=== PATIENT | male | born 1955 | race African-American/Black ===

== ENCOUNTER 2021-11-18 08:10 | Inpatient (IN) | payer OTHER, SELFPAY ==
[2021-11-18] VITALS (33 sets, daily range): BP systolic 49–130; BP diastolic 21–98; PULSE 69–109; RESP 10–34; TEMP 36.3–37.3; O2SAT 85–98
--- NOTE | ~2021-11-18 | XR_ITS ---
EXAMINATION: XR abdomen NG/feed tube insert INDICATION: Nasogastric tube placement TECHNIQUE: Portable AP KUB-NG at 1303 hours COMPARISON: None available FINDINGS: The nasogastric tube ends with its tip in the right lower lobe. The abdomen is relatively g asless, consistent with bowel obstruction seen on CT. There is mild atelectasis of the left lower lob e. IMPRESSION: 1. Nasogastric tube in the right lower lobe. Tube has been removed at the time of interpretation. Reviewed, dictated and finalized at location A.
--- NOTE | ~2021-11-18 | XR_ITS ---
EXAMINATION: XR chest 1V portable DATE: 11/20/2021 08:15 INDICATION: Septic shock. TECHNIQUE: A single frontal view of the chest was obtained. COMPARISON: Chest single view 11/18/2021, CT abdomen and pelvis 11/18/2021 FINDINGS: The patient is rotated to his left. There are airspace opacities in right midlung zone. No pleural effusion or pneumothorax. The heart size is normal. Main pulmonary artery is enlarged, consis tent with pulmonary arterial hypertension. A right internal jugular central venous catheter is seen w ith tip in the superior vena cava. The nasogastric tube tip is in the stomach. IMPRESSION: 1. Worsened airspace opacities in right midlung zone, consistent with atelectasis versus pneumonia. Reviewed, dictated and finalized at location A. IMPRESSION: 1. Worsened airspace opacities in right midlung zone, consistent with atelectas is versus pneumonia.
--- NOTE | ~2021-11-18 | XR_ITS ---
EXAMINATION: XR chest 1V portable INDICATION: Central line insertion TECHNIQUE: Portable AP chest at 1148 hours COMPARISON: None FINDINGS: The right sided catheter is been inserted which ends with its tip in the midsuperior vena c thai. There are minimal airspace opacities of the right lung and in the left lung base. No pleural eff usion or pneumothorax. The heart size is normal. Osteoarthritis is noted in the shoulders. IMPRESSION: 1. Right-sided catheter ending with its tip in the midsuperior vena cava. 2. Patchy bilateral airspace opacities, consistent with atelectasis versus pneumonia. Reviewed, dictated and finalized at location A. IMPRESSION: 1. Right-sided catheter ending with its tip in the midsuperior vena cava. 2. Patchy bilateral airspace opacities, consistent with atelectasis versus pneu monia.
--- NOTE | ~2021-11-18 | XR_ITS ---
XR abdomen obstructive series INDICATION: Evaluate NG tube position. TECHNIQUE: Limited KUB perform for evaluating NG tube . COMPARISON: 11/18/2021 FINDINGS: NG tube tip in the stomach. There are dilated small bowel loops which may represent ileus o r obstruction.. IMPRESSION: 1: NG tube tip in the stomach, side port near the expected location of the GE junction. 2: Dilated small bowel, adynamic ileus versus obstruction. Reviewed, dictated and finalized at location B.
--- NOTE | ~2021-11-18 | XR_ITS ---
EXAMINATION: XR abdomen NG/feed tube insert DATE: 11/18/2021 16:08 INDICATION: Nasogastric tube placement. TECHNIQUE: A semierect view of the abdomen was obtained. COMPARISON: CT abdomen and pelvis 11/18/2021 FINDINGS: The lower abdomen is excluded. The nasogastric tube tip is in the stomach. There are no dil ated loops of small bowel. IMPRESSION: 1. Nasogastric tube tip in the stomach. 2. Dilated small bowel, consistent with small bowel obstruction. Reviewed, dictated and finalized at location A.
--- NOTE | ~2021-11-18 | CT_ITS ---
EXAMINATION: CT abdomen pelvis wo con DATE: 11/18/2021 10:21 INDICATION: Abdominal pain TECHNIQUE: Computed tomography (CT) of the abdomen and pelvis was performed without intravenous contr ast. The dose-length product was 504.00 mGy-cm. Automated exposure control and iterative reconstructi on technique were employed. COMPARISON: None. FINDINGS: There is dependent atelectasis. Small pericardial effusion.. Heart size normal. No signific ant pleural effusion. Severe gastric distention. There are multiple dilated loops of small bowel with air-fluid levels. The distal small bowel is relatively decompressed. Findings compatible with small bowel obstruction. There are multiple areas of free intraperitoneal air in the nondependent aspect of the abdomen and pelvis, suspicious for perforation. Gallbladder is severely distended. The liver, spleen, pancreas, adrenal glands and kidneys are unrema rkable. Moderate atherosclerosis. Michael catheter present in the bladder. There is osteoarthritis of t he hips. Moderate lumbar spondylosis. Ventral abdominal wall hernias are identified containing fat. IMPRESSION: 1. Small bowel obstruction with free intraperitoneal air, suspicious for bowel perforation. 2: Distended gallbladder, nonspecific. 3: Ventral abdominal wall hernias containing fat. Dr. Donny Latham discussed with Dr. Natan Yen MD at 11/18/2021 10:29 CDT. Reviewed, dictated and finalized at location B.
--- NOTE | ~2021-11-18 | US_ITS ---
EXAMINATION: US renal BI DATE: 11/18/2021 16:39 INDICATION: Acute kidney injury. TECHNIQUE: Multiple ultrasound grayscale images of the kidneys were obtained. COMPARISON: CT abdomen and pelvis 11/18/2021 FINDINGS: The right kidney measures 9.0 x 4.0 x 5.9 cm. The left kidney measures 9.1 x 5.0 x 5.7 cm. The kidney s demonstrate normal parenchymal echogenicity. There is no hydronephrosis. The bladder is decompresse d by a Michael catheter.. IMPRESSION: 1. Normal kidneys. No hydronephrosis. Reviewed, dictated and finalized at location A.
--- NOTE | ~2021-11-18 | XR_ITS ---
EXAMINATION: XR abdomen obstructive series DATE: 11/20/2021 08:15 INDICATION: Small bowel obstruction. TECHNIQUE: Upright and supine views of the abdomen on 3 radiographs were obtained. COMPARISON: CT abdomen and pelvis 11/18/2021 FINDINGS: There are persistently dilated loops of small bowel. The colon is decompressed. The nasogas tric tube tip is in the stomach. No free intraperitoneal gas. A Michael catheter is noted. IMPRESSION: 1. Persistently dilated small bowel, consistent with small bowel obstruction. Reviewed, dictated and finalized at location A.
--- NOTE | 2021-11-18 08:12 | ED.ABDPAIN ---
HPI - Abdominal Pain General Chief Complaint: Abdominal Pain Stated Complaint: ABD PAIN X 3 DAYS History of Present Illness HPI narrative: 66-year-old male presenting to the emergency department for evaluation of lower abdominal pain. [facility] and is reportedly only alert and oriented x1 at baseline. Patient has not had a bowel movement the last few days. Patient has been complaining of lower abdominal pain. Patient does have an old surgical incision on his abdomen but is not sure what that was from. Patient is unable to give any other history at this time. Related Data Home Medications Medication Instructions Recorded Confirmed acetaminophen 500 mg capsule 1,000 mg PO BID 11/18/21 11/18/21 baclofen 10 mg tablet 10 mg PO TID 11/18/21 11/18/21 docusate sodium 100 mg capsule 100 mg PO BID PRN Constipation 11/18/21 11/18/21 dorzolamide 22.3 mg-timolol 6.8 1 drp LEFT EYE BID 11/18/21 11/18/21 mg/mL eye drops ergocalciferol (vitamin D2) 1,250 1,250 mcg PO WEEKLY 11/18/21 11/18/21 mcg (50,000 unit) capsule ibuprofen 400 mg tablet 400 mg PO BID 11/18/21 11/18/21 losartan 25 mg tablet 25 mg PO DAILY 11/18/21 11/18/21 prednisolone acetate 1 % eye 1 drp LEFT EYE BID 11/18/21 11/18/21 drops,suspension psyllium 1 tsp PO BID PRN Constipation 11/18/21 11/18/21 vitamin B complex (B See Rx Instructions .Route .COMPLEX 11/18/21 11/18/21 Complex-Vitamin B12 tablet) Allergies Allergy/AdvReac Type Severity Reaction Status Date / Time No Known Allergies Allergy Verified 11/18/21 14:27 Review of Systems Review of Systems: See HPI ROS unobtainable: Yes unobtainable due to mental status PMFSH Past Medical History Medical History Chronic back pain COPD (chronic obstructive pulmonary disease) DJD (degenerative joint disease) HTN (hypertension), benign Low vision Vitamin D deficiency Family History Family History Other Family history unknown Social History Social History Social History: Anat is from [facility]. Smoking status: Unknown if ever smoked Substance use: unknown Spiritual care concerns: No Exam Narrative: APPEARANCE: Well appearing, no pain, no distress, well-nourished. HEAD: normocephalic, atraumatic. EYES: PERRLA/EOMI, conjunctivae clear. NOSE: Normal no drainage EARS:TMS clear with good light reflex. THROAT: Pharynx clear, no exudate. NECK: Supple. No adenopathy, no masses. RESPIRATORY: Airway patent, respirations nonlabored. Clear to auscultation bilaterally, no rales, rhonchi, wheezing. CARDIOVASCULAR: Regular rate and rhythm without murmurs rubs or gallops. ABDOMINAL: Soft, lower abdominal tenderness to palpation. Old surgical incision MUSCULOSKELETAL: Moves all extremities. Strength/ROM intact, No edema, No calf tenderness. NEURO: Alert. Cranial nerves II through XII intact. Grossly intact SKIN: Warm, dry. Normal Color Procedures Central Line Placement Right IJ: Central Line Date: 11/18/21 Central Line Time: 11:34 Discussed w/ the patient/family/POA,the placement of a central venous catheter, including its clinical necessity/indication & associated potential risks, benifits and alternatives.: Yes The patient/family/POA understand(s) and acknowledge(s) the need to proceed with central venous catheter insertion as an important element of the patient's clinical management.: Yes Performed Emergently - Given emergent patient condition, temporal constraints may have precluded informed consent.: Yes Time Out Performed: Yes Patient Placed on Monitor/Pulse Ox: Yes Max. Sterile Barrier Technique: Caps, large sterile sheet and hand hygiene Central Line Prep: 2% chlorhexidine scrub and sterile drapes applied Technique
[2021-11-18 08:35] LABS: Hemoglobin 14.3 g/dL (14.0-18.0); Mean Corpuscular HGB Conc 33.3 g/dl (32-36); Mean Corpuscular Hemoglobin 32.4 pg (26-34); Mean Corpuscular Volume 97.5 fl (80-100); Platelet Count Result 260 k/mm3 (150-375); Red Blood Count 4.41 M/mm3 (4.6-6.20); Red Cell Distribution Width 13.2 % (11.5-14.5); White Blood Count 15.5 K/mm3 (4.5-10.0)
--- NOTE | 2021-11-18 08:43 | PC.NURSE ---
ns bolus held d/t bs being low. erp dylan rosales.
[2021-11-18 08:51] LABS: Albumin Level 4.2 g/dL (3.5-5.1); Alkaline Phosphatase 67 U/L (38-126); Anion Gap 36 mmol/L (8-16); Bilirubin,Total 0.9 mg/dL (0.2-1.3); Calcium 5.9 mg/dL (8.4-10.2); Carbon Dioxide 17 mmol/L (22-30); Chloride 77 mmol/L (98-107); Glucose 314 mg/dL (65-110); Lipase 101 U/L (23-300); Potassium 6.6 mmol/L (3.4-5.0); Sodium 130 mmol/L (137-145)
[2021-11-18] MEDS: DEXTROSE 10% 500 ML 50 ML (08:51)
[2021-11-18 08:53] LABS: Glucose Point of Care 39 mg/dl (65-105)
[2021-11-18 08:53] LABS: Glucose Point of Care 61 mg/dl (65-105)
[2021-11-18 08:54] LABS: Lactic Acid Reflex 9.4 mmol/L (0.7-2.0)
[2021-11-18 08:58] LABS: Alanine Aminotransferase 690 U/L (6-50)
[2021-11-18 09:00] LABS: Band Neutrophils Percent 37 % (0-6); Large Platelets Present; Lymphocytes Absolute Manual 0.93 K/mm3 (1.1-4.5); Metamyelocytes Percent 1 %; Monocytes Absolute Manual 0.77 K/mm3 (0.1-0.90); Monocytes Percent Manual 5 % (3-9); Neutrophils Absolute Manual 13.64 K/mm3 (1.3-6.7); Neutrophils Percent Manual 51 % (46-73); Platelet Estimate Adequate (Adequate); Total Cells Counted 100
[2021-11-18 09:04] LABS: Estimated CRCL calculation 5 ml/min; Estimated Glomerular Filt Rate 4
[2021-11-18 09:16] LABS: Aspartate Amino Transferase 1050 U/L (17-59); Blood Urea Nitrogen 126 mg/dL (9-20)
[2021-11-18] MEDS: CALCIUM GLUCONATE 1,000 MG/10 ML VIAL 1000 MG IV PUSH (09:22)
[2021-11-18] MEDS: SODIUM BICARBONATE 8.4% 50 MEQ/50 ML SYRINGE IV PUSH (09:22)
[2021-11-18 09:23] LABS: Glucose Point of Care 40 mg/dl (65-105)
[2021-11-18] MEDS: SODIUM CHLORIDE 0.9% IV 1,000 ML 999 ML IV CONT ×2 (09:23)
[2021-11-18] MEDS: DEXTROSE 50% 25 GM/50 ML SYRINGE 50 GM (09:29)
[2021-11-18] MEDS: DEXTROSE 50% 25 GM/50 ML SYRINGE (09:29)
[2021-11-18 09:36] LABS: Glucose 634 mg/dL (65-110)
[2021-11-18 09:53] LABS: Glucose Point of Care 159 mg/dl (65-105)
[2021-11-18 10:05] LABS: Beta-Hydroxybutyrate/Acetoacetate 0.68 mmol/L (0.02-0.27)
[2021-11-18 10:37] LABS: Hemoglobin A1C 5.3 % (<5.7)
[2021-11-18] MEDS: SODIUM ZIRCONIUM CYCLOSILICATE 10 GM POWD.PACK PO (10:45)
[2021-11-18 10:53] LABS: Glucose 254 mg/dL (65-110)
--- NOTE | 2021-11-18 11:00 | PC.NURSE ---
pt. bladder scanned only has 100 ml in. pt. catheterized and no urine output.
[2021-11-18 11:18] LABS: Magnesium 2.2 mg/dL (1.6-2.3)
[2021-11-18 11:19] LABS: Phosphorus 17.2 mg/dL (2.5-4.5)
[2021-11-18 11:32] LABS: Reflex Lactic Acid Yes or No Add Lactic
--- NOTE | 2021-11-18 12:00 | PM.CNGS ---
Assessment and Plan Assessment and plan (1) SBO (small bowel obstruction): Code(s): K56.609 - Unspecified intestinal obstruction, unspecified as to partial versus complete obstruction Status: Acute Assessment and Plan: given comorbid conditions he is a poor surgical candidate, will begin conservative mgmt c NG decompression, bowel rest, IV resus (2) Bowel perforation: Code(s): K63.1 - Perforation of intestine (nontraumatic) Status: Acute Assessment and Plan: small amount of free air, no free fluid/abscess, exam largely benign, will follow closely c serial exams, needs resus (3) DKA (diabetic ketoacidosis): Code(s): E11.10 - Type 2 diabetes mellitus with ketoacidosis without coma Status: Acute Assessment and Plan: mgmt per [employer] technical lead senior developer (4) ORQUIDEA (acute kidney injury): Code(s): N17.9 - Acute kidney failure, unspecified Status: Acute Assessment and Plan: mgmt per [employer] technical lead senior developer, will likely need emergent HD History of Present Illness Consult details Consult date: 11/18/21 Reason for consult: abdominal pain Requesting physician: Gordon Yen DO Narrative: Pt is a 66 y/o M c multiple med issues including severe dementia presenting to ED c/o lower abd pain over last few days. Pt is a poor historian and most history is obtained via chart. Pt resides at [facility] and according to chart has not had a BM over last few days. Pt also c poor appetite. Pt c some nausea, no reports emesis. Review of Systems Review of Systems: ROS unobtainable: Yes unobtainable due to mental status PMFSH Comments unable to obtain Meds Home Medications and Allergies Allergies Allergy/AdvReac Type Severity Reaction Status Date / Time No Known Allergies Allergy Verified 11/18/21 09:27 Vital Signs Vital Signs - 24 hr 11/18/21 08:31 Temperature 36.3 C L Pulse Rate 76 Respiratory Rate 17 Blood Pressure 101/79 Pulse Oximetry 96 Oxygen Delivery Room Air Exam Const: General: comfortable, alert, confusion, ill appearing and tired appearing HENMT: Head: normal to inspection, normocephalic and atraumatic Eyes: General: appearance normal, both eyes and all related structures Neck: Neck: normal visual inspection and full ROM Chest: Chest palpation & inspection: normal inspection of the chest Resp: Effort & Inspection: normal respiratory effort Auscultation: diminished lung sounds Cardio: Rate: regular rate Rhythm: regular rhythm GI: Inspection: distended and incision GI Palp: Yes abdominal tenderness, Yes Soft to palpation, Yes Tenderness to palpation present (GI), No Guarding due to palpation present (GI) and No Rigid due to palpation Other: moderate TTP diffusely, upper midline scar, no peritoneal signs, distended Skin: General skin exam: normal color and no rashes or lesions noted Neuro: General: oriented to person Extrem: General: normal to inspection and full ROM Results Labs Result diagrams: 11/18/21 08:29 11/18/21 10:31 Labs: Abnormal lab results 11/18/21 11/18/21 11/18/21 Range/Units 08:21 08:29 08:29 WBC 15.5 H (4.5-10.0) K/mm3 RBC 4.41 L (4.6-6.20) M/mm3 MPV 12.0 H (7.4-10.4) fl Band Neutrophils % 37 H (0-6) % Lymphocytes % (Manual) 6.0 L (18-44) % Abs Neuts (Manual) 13.64 H (1.3-6.7) K/mm3 Abs Lymphs (Manual) 0.93 L (1.1-4.5) K/mm3 Sodium 130 L (137-145) mmol/L Potassium 6.6 H* (3.4-5.0) mmol/L Chloride 77 L (98-107) mmol/L Carbon Dioxide 17 L (22-30) mmol/L Anion Gap 36 H (8-16) mmol/L BUN 126 H (9-20) mg/dL Creatinine 11.70 H (0.7-1.3) mg/dL Estimated GFR 4 L (59 - ) Glucose 314 H (65-110) mg/dL POC Capillary Glucose 61 L (65-105) mg/dl Lactic Acid (0.7-2.0) mmol/L Calcium 5.9 L (8.4-10.2) mg/dL Phosphorus (2.5-4.5) mg/dL AST 1050 H (17-59) U/L ALT 690 H (6-50) U/L Beta-Hydroxybutyrate/Alo
[2021-11-18 12:02] LABS: Glucose 203 mg/dL (65-110)
[2021-11-18 12:07] LABS: Lactic Acid 4.6 mmol/L (0.7-2.0)
--- NOTE | 2021-11-18 12:24 | PC.NURSE ---
updated nursing staff at [facility] of pt. status spoke w/ Maura
--- NOTE | 2021-11-18 13:45 | PC.NURSE ---
three RN attempted for pt. NG tube x3 unsuccessful.
[2021-11-18] MEDS: NOREPINEPHRINE 8 MG/D5W 250 ML 8 MG/250 ML BAG 9.38 MG IV CONT (14:02)
--- NOTE | 2021-11-18 14:15 | ADMGEN ---
This patient, Fabio Wong, was admitted to Intensive Care Unit-4. Patient/family oriented to hospital policies and general routines including ID bracelet, bed and alarms, visiting hours, pain management, procedures, bathroom and other care routines, personal items, smoking policy, room service/diet, and visiting hours. Information on how to activate the Rapid Response Team has been discussed. Patient/Family are encouraged to report perceived risks to care and to ask questions if they do not understand what they are told or what they should do.
[2021-11-18] MEDS: dexmedeTOMIDine 400 MCG/100 ML 400 MCG/100 ML BAG (14:21)
--- NOTE | 2021-11-18 14:29 | WPDCNINT ---
Assessment and Plan Assessment and plan (1) Septic shock: Code(s): A41.9 - Sepsis, unspecified organism; R65.21 - Severe sepsis with septic shock Status: Acute Assessment and Plan: Patient presenting with abdominal pain into 3 days, acute kidney injury, hypotension, confusion -blood pressures have been low, patient received 2 L of IV fluid bolus in the ER -right IJ central line was placed on 11/18/2021 in the ER and started on Levophed -will maintain MAP > 65 mmHg adequate end organ perfusion -will give additional IV fluid bolus -start sodium bicarb infusion -monitor urine output -elevated lactic acid, improving after resuscitation, will continue to trend lactic levels -did liver enzymes likely related to shock liver, continue to trend (2) SBO (small bowel obstruction): Code(s): K56.609 - Unspecified intestinal obstruction, unspecified as to partial versus complete obstruction Status: Acute Assessment and Plan: Patient presented with abdominal pain, was found to have small-bowel obstruction with possible perforation -11/18/2021 CT abdomen pelvis: 1. Small bowel obstruction with free intraperitoneal air, suspicious for bowel perforation.2:? Distended gallbladder, nonspecific.3: Ventral abdominal wall hernias containing fat. -surgery following the patient, poor surgical candidate, will manage conservatively with serial exams, fluid resuscitation, NG tube decompression, bowel rest. -Zosyn, renally dosed (3) Bowel perforation: Code(s): K63.1 - Perforation of intestine (nontraumatic) Status: Acute Assessment and Plan: As above (4) ORQUIDEA (acute kidney injury): Code(s): N17.9 - Acute kidney failure, unspecified Status: Acute Assessment and Plan: Presented with acute kidney injury with a creatinine of 11.7 and BUN of 126, likely related to shock, infection, hypovolemia, small-bowel obstruction -will aggressively fluid resuscitate the patient -will start sodium bicarb infusion -patient was hyperkalemic, was given Lokelma, insulin, bicarb, calcium -will repeat renal panel -urine electrolytes, CK levels, urine eosinophils -check renal ultrasound -function, electrolytes and urine output (5) Hyperglycemia: Code(s): R73.9 - Hyperglycemia, unspecified Status: Acute Assessment and Plan: Patient blood sugars have been erratic, they range between 40-600 -last blood sugars are 159 -Accu-Cheks and sliding scale insulin q.4 hours -an A1c (6) COPD (chronic obstructive pulmonary disease): Code(s): J44.9 - Chronic obstructive pulmonary disease, unspecified Status: Acute Assessment and Plan: History of COPD, Will start bronchodilators Plan DVT prophylaxis: Heparin SQ Stress ulcer prophylaxis: Protonix Nutrition: NPO for now, NG tube to suction Called patient's son Ger on [phone], no answer, left a message Also called Gentry, patient's son on 06/14 [phone] and left a message Code Status: Full code Critical Care Time Spent: 50 minutes Due to a high probability of clinically significant, life threatening deterioration, the patient required my highest level of preparedness to intervene emergently and I personally spent this critical care time directly and personally managing the patient. This critical care time included obtaining a history; examining the patient; pulse oximetry; ordering and review of studies; arranging urgent treatment with development of a management plan; evaluation of patient's response to treatment; frequent reassessment; and discussions with other providers. It was exclusive of separately billable procedures and treating other patients and teaching time. Please see Assessment and Plan section and the rest of the note for further information on patient assessment and treatment Coal Loader Consult Note Consult date: 11/18/21 Reason for consult: Small-bowel obstruction, bowel perforation, hyperglycemia, acute kidney HP
[2021-11-18 14:58] LABS: Glucose Point of Care 159 mg/dl (65-105)
[2021-11-18 15:06] LABS: Hematocrit 42.1 % (42.0-52.0); Hemoglobin 14.6 g/dL (14.0-18.0); Mean Corpuscular HGB Conc 34.7 g/dl (32-36); Mean Corpuscular Hemoglobin 32.8 pg (26-34); Mean Corpuscular Volume 94.6 fl (80-100); Mean Platelet Volume 11.7 fl (7.4-10.4); Platelet Count Result 248 k/mm3 (150-375); Red Blood Count 4.45 M/mm3 (4.6-6.20); Red Cell Distribution Width 13.3 % (11.5-14.5); White Blood Count 8.9 K/mm3 (4.5-10.0)
[2021-11-18 15:09] LABS: Alveolar/Arterial O2 Gradient 33.7 mmHg; Base Excess ABG -4.4 mEq/l (+/-2.0); Fractional Inspired Oxygen 21 %; HCO3 ABG 19.2 mEq/l (22.0-26.0); Oxygen Content ABG 21.4 %vol (16.0-22.0); Oxygen Saturation ABG 95.6 % (95.0-100.0); Oxyhemoglobin 92.9 % THb (90.0-100.0); PCO2 ABG 31.9 mmHg (35.0-45.0); PO2 ABG 77.8 mmHg (80.0-100.0); Total Hemoglobin 16.4 g/dL (12.0-18.0); pH ABG 7.397 (7.350-7.450)
[2021-11-18 15:10] LABS: Device ROOM AIR; Modified Allen's Test Pass; Site Drawn RIGHT RADIAL
[2021-11-18 15:16] LABS: INR 1.5; Prothrombin Time 17.1 Seconds (11.1-14.7)
[2021-11-18 15:17] LABS: Partial Thromboplastin Time 29.2 SECONDS (22.3-36.8)
[2021-11-18 15:18] LABS: Lactic Acid Reflex 2.6 mmol/L (0.7-2.0)
[2021-11-18 15:20] LABS: Albumin Level 3.9 g/dL (3.5-5.1); Alkaline Phosphatase 74 U/L (38-126); Anion Gap 24 mmol/L (8-16); Bilirubin,Total 0.9 mg/dL (0.2-1.3); Calcium 5.7 mg/dL (8.4-10.2); Carbon Dioxide 24 mmol/L (22-30); Chloride 84 mmol/L (98-107); Glucose 132 mg/dL (65-110); Lipase 132 U/L (23-300); Magnesium 1.9 mg/dL (1.6-2.3); Phosphorus 10.4 mg/dL (2.5-4.5); Potassium 4.8 mmol/L (3.4-5.0); Sodium 132 mmol/L (137-145)
[2021-11-18] MEDS: hetaSTARCH 6%/NACL 500 ML 250 ML IV CONT (15:20)
[2021-11-18] MEDS: SODIUM CHLORIDE 0.9% IV 500 ML IV CONT (15:24)
[2021-11-18] MEDS: dexmedeTOMIDine 400 MCG/100 ML 400 MCG/100 ML BAG IV CONT (15:25)
[2021-11-18] MEDS: HYDROmorphone HCL INJ (*CRX) 1 MG/ML SYR 0.3 MG IV PUSH ×2 (15:40→20:05)
[2021-11-18 15:43] LABS: Band Neutrophils Percent 19 % (0-6); Monocytes Absolute Manual 1.15 K/mm3 (0.1-0.90); Monocytes Percent Manual 13 % (3-9); Neutrophils Absolute Manual 6.14 K/mm3 (1.3-6.7); Neutrophils Percent Manual 50 % (46-73); Total Cells Counted 100
[2021-11-18 15:44] LABS: Atypical Lymphocytes Present; Platelet Estimate Adequate (Adequate)
[2021-11-18 15:45] LABS: Large Platelets Present
[2021-11-18 15:49] LABS: Hemoglobin A1C 5.4 % (<5.7)
[2021-11-18 15:53] LABS: Estimated CRCL calculation 5 ml/min; Estimated Glomerular Filt Rate 6
--- NOTE | 2021-11-18 15:58 | PM.IMHP ---
H&P: HPI History of Present Illness Date/Time: 11/18/21 15:58 Chief Complaint: Abdominal pain Narrative: 66yo male with COPD, HTN and chronic back pain here for abdominal pain and found to have septic shock. Patient has eyes closed but is aware enough to resist exam at times. He is unable to provide history. Majority of the history is from the chart. Patient has a history of COPD, chronic back pain hypertension, DJD, vitamin-D deficiency and poor vision /blindness. Patient was complain of constipation with nausea and vomiting for the past 3 days. On 11/15, he received a Fleet enema X1, Compazine x1 then started on bisacodyl and MiraLax. Lab work drawn at that time shows a white count of 11 K otherwise normal CBC. Comprehensive dental panel showed a BUN 48, creatinine 4.3 with a normal serum bicarb but anion gap of 22. Calcium was slightly elevated as was the albumin but LFTs otherwise normal. KUB showed multiple nondilated gas-filled loops of bowel on that day. Patient is alert and oriented x3 most days but today he was only oriented x1. There is a mention that he has had abdominal surgeries although these are not listed. Patient was brought to the emergency room from the residential because of confusion and increasing abdominal pain. In the ED, his vital signs initially were stable. lab work showed a potassium 6.6, metabolic gap acidosis with an anion gap of 36, BUN 126 creatinine 1.7. Initial glucose was low at 39 although glucose was 314 on the blood work. According to the ED physician, it was felt that the capillary glucose was lab error. Lactic acid was 9.4. AST 1050 with ALT 690. BHOB was 0.7. White count was 15K. INR 1.5. ABG 7.40/32/[address] of the abdomen pelvis without contrast shows small bowel obstruction with 3 intraperitoneal air suspicious for bowel perforation. Gallbladder is distended. Ventral abdominal wall hernia contains fat. Chest x-ray shows right-sided catheter with tip in the mid superior vena cava. Patient also had patchy bilateral airspace opacities atelectasis versus pneumonia. NG tube was placed to low wall intermittent suction. Blood pressure dropped to 75/21. Central line was placed. Cultures started. He was started on Levophed. He was given Hespan and IV fluids. Was started on broad-spectrum IV antibiotics. NG tube output was fecal like material initially but now red blood from NG. patient has been admitted to the ICU for further care. Review of Systems Review of Systems: ROS unobtainable: Yes unobtainable due to mental status PMFSH Past Medical History Medical History (Updated 11/18/21 @ 17:01 by Juan Escoto MD) Chronic back pain COPD (chronic obstructive pulmonary disease) DJD (degenerative joint disease) HTN (hypertension), benign Low vision Vitamin D deficiency Family History Family History (Updated 11/18/21 @ 16:03 by Juan Escoto MD) Other Family history unknown Social History Social History (Updated 11/18/21 @ 16:04 by Juan Escoto MD) Social History: Anat is from [facility]. Smoking status: Unknown if ever smoked Substance use: unknown Spiritual care concerns: No Meds Home Medications and Allergies Home Medications Medication Instructions Recorded Confirmed Type acetaminophen 500 mg capsule 1,000 mg PO BID 11/18/21 11/18/21 History baclofen 10 mg tablet 10 mg PO TID 11/18/21 11/18/21 History docusate sodium 100 mg capsule 100 mg PO BID PRN Constipation 11/18/21 11/18/21 History dorzolamide 22.3 mg-timolol 6.8 1 drp LEFT EYE BID 11/18/21 11/18/21 History mg/mL eye drops ergocalciferol (vitamin D2) 1,250 1,250 mcg PO WEEKLY 11/18/21 11/18/21 History mcg (50,000 unit) capsule ibuprofen 400 mg tablet 400 mg PO BID 11/18/21 11/18/21 History losartan 25 mg tablet 25 mg PO DAILY 11/18/21 11/18/21 History prednisolone acetate 1 % eye 1 drp LEFT EYE BID 11/18/21 11/18/21 History drops,lee
[2021-11-18] MEDS: SODIUM BICARBONATE 8.4% 150 MEQ in WATER, STERILE FOR INJECTION 950 ML 100 MEQ IV CONT (15:59)
[2021-11-18 16:07] LABS: Creatine Kinase > 16000 U/L (55-170)
[2021-11-18 16:39] LABS: Alanine Aminotransferase 1002 U/L (6-50); Aspartate Amino Transferase 1678 U/L (17-59); Blood Urea Nitrogen 139 mg/dL (9-20)
[2021-11-18 17:08] LABS: Glucose Point of Care 334 mg/dl (65-105)
--- NOTE | 2021-11-18 18:40 | PM.CNNEP ---
Assessment and Plan Assessment and plan (1) ORQUIDEA (acute kidney injury): Code(s): N17.9 - Acute kidney failure, unspecified Status: Acute Assessment and Plan: The patient has acute kidney injury. Renal ultrasound shows normal kidneys however they are a bit small. There are several issues that could be contributing to this. He has been very sick for the last couple of days and not eating and so could have dehydration. He was on ibuprofen as an outpatient which could contribute to this. He has septic shock and his low blood pressure is probably contributing. he has rhabdomyolysis. He most likely does have ATN however we will volume resuscitate overnight and see if his renal function starts to improve. If not he may need dialysis. I talked with the son at length. His family is coming in and they are going to discuss aggressiveness of care. He already talked with Dr. Escoto about this subject and we also discussed options such as full code, do will were doing but not CPR or intubation, or even withdrawal of care. He realizes that his father Is very ill currently. At this point I will check urine electrolytes, urine urea . We will continue IV fluids. We will continue support with pressors. (2) Rhabdomyolysis: Code(s): M62.82 - Rhabdomyolysis Status: Acute Assessment and Plan: The patient has a CPK of greater than 16,000. possibly the rhabdomyolysis is due to his low blood pressure. He was not on a statin according to his outpatient med list. The patient is getting IV fluids with bicarbonate. Because of his low blood pressure will do this alone. If the blood pressure comes up and he still is not making urine then consider loop diuretics. (3) Septic shock: Code(s): A41.9 - Sepsis, unspecified organism; R65.21 - Severe sepsis with septic shock Status: Acute Assessment and Plan: The patient is hypotensive. Cultures are drawn. He is getting Zosyn. (4) DKA (diabetic ketoacidosis): Code(s): E11.10 - Type 2 diabetes mellitus with ketoacidosis without coma Status: Acute Assessment and Plan: Diabetes is apparently a new diagnosis for this patient. He has high sugars and also a positive beta hydroxybutyrate. His CO2 was 17 on admission and has risen to 24. When his bicarbonate was 17 his anion gap was 36. Most likely because of his COPD he has chronic CO2 retention and has a chronically high bicarbonate based on the very high delta anion gap and relatively low delta bicarb. some of the anion gap is due to his BPH OB, some due to lactate, and some due to uremic toxins. (5) SBO (small bowel obstruction): Code(s): K56.609 - Unspecified intestinal obstruction, unspecified as to partial versus complete obstruction Status: Acute Assessment and Plan: Surgery has seen the patient. He is getting volume resuscitated to try to make him more stable. Surgery will follow him along decide if or when to take him to surgery. (6) HTN (hypertension), benign: Code(s): I10 - Essential (primary) hypertension Status: Acute Assessment and Plan: He is not on any antihypertensives. (7) COPD (chronic obstructive pulmonary disease): Code(s): J44.9 - Chronic obstructive pulmonary disease, unspecified Status: Acute Assessment and Plan: Getting supportive care History of Present Illness Reason for Consult Consult date: 11/18/21 Chief Complaint Chief complaint: SBO,Bowel Perf,Hyperkalemia,ORQUIDEA on CKD History of Present Illness Narrative: Fabio kulkarni is an unfortunate 66-year-old gentleman who has multiple medical problems including hypertension, COPD, chronic back pain, DJD, vitamin-D deficiency, poor visual acuity. The patient was living with the son for a long time however his son then acquired 3 jobs, they had a baby, and his is also working full-time so they are unable
--- NOTE | 2021-11-18 19:17 | PC.NURSE ---
Son Gentry doesnt want any information about his father given to the [facility], or any one else . All information and questions regarding his father are to be directed to him. [phone]
[2021-11-18 19:25] LABS: Glucose Point of Care 124 mg/dl (65-105)
[2021-11-18] MEDS: CENTRAL LINE FLUSH 10 ML IV PUSH ×2 (19:39→22:11)
[2021-11-18] MEDS: ALBUTEROL SULFATE NEB 2.5 MG/3 ML INH INHALATION (20:40)
[2021-11-18] MEDS: IPRATROPIUM BR 0.02% INH SOLN 0.5 MG/2.5 ML VIAL INHALATION (20:40)
[2021-11-18] MEDS: HEPARIN SODIUM 5,000 UNITS/ML VIAL 5000 UNITS SUB-Q (22:12)
[2021-11-18] MEDS: NOREPINEPHRINE 8 MG/D5W 250 ML 8 MG/250 ML BAG 28.13 MG IV CONT (23:24)
[2021-11-19] VITALS (28 sets, daily range): BP systolic 83–127; BP diastolic 44–70; PULSE 66–101; RESP 10–20; TEMP 36.3–37.7; O2SAT 92–100; BMI 20.2
--- NOTE | 2021-11-19 | ECHO_ITS ---
Patient Info Name: Fabio Wong Age: 66 years : 1955 Gender: Male Ht: 72 in Wt: 149 lbs BSA: 1.84 m2 HR: 78 bpm BP: 131 / 51 mmHg Technical Quality: Fair Exam Date: 11/19/2021 9:53 AM Exam Location: [facility] Pulmonary Exam Room: ICU4 Patient Status: Inpatient Admit Date: 11/18/2021 Staff Ordering Physician: Andrew Somers MD Desk Pens Assembler: Stephanie Bird RDCS Attending Provider: Juan Escoto MD Referring Physician: [facility] ; Exam Type: CA echo doppler color flow Study Info Indications - SEPTIC SHOCK Complete two-dimensional, color flow and Doppler transthoracic echocardiogram is performed. Summary 1. Complete two-dimensional, color flow and Doppler transthoracic echocardiogram is performed. 2. Left ventricular chamber dimension is normal. 3. Left ventricular systolic function is normal, estimated at 60-65%. 4. There is mildly increased left ventricular wall thickness. 5. The left ventricular diastolic function is grade I diastolic dysfunction. 6. Left atrial chamber dimension is mildly enlarged. 7. There is trace aortic valve regurgitation. 8. There is mild tricuspid valve regurgitation. 9. No pulmonary hypertension, estimated pulmonary arterial systolic pressure is 37 mmHg. 10. There is trace pulmonic regurgitation. Left Ventricle Tissue doppler is not performed. Left ventricular chamber dimension is normal. Left ventricular systolic function is normal, estimated at 60-65%. There is mildly increased left ventricular wall thickness. The left ventricular diastolic function is grade I diastolic dysfunction. Right Ventricle Right ventricular chamber dimension is normal. Right ventricular systolic function is normal. Left Atria Left atrial chamber dimension is mildly enlarged. Right Atria Right atrial chamber dimension is normal. Aortic Valve The aortic valve is trileaflet. There is no aortic valve stenosis. There is trace aortic valve regurgitation. No aortic valve vegetation visualized. Pulmonic Valve There is trace pulmonic regurgitation. No pulmonic valve vegetation visualized. Mitral Valve There is no mitral valve stenosis. There is no mitral valve regurgitation. No mitral valve vegetation visualized. Tricuspid Valve There is mild tricuspid valve regurgitation. No pulmonary hypertension, estimated pulmonary arterial systolic pressure is 37 mmHg. No tricuspid valve vegetation visualized. Pericardium/Pleural There is no pericardial effusion. Inferior Vena Cava Inferior vena cava is not well visualized. Aorta The aortic root size at the sinus of Valsalva is normal. Left Ventricular Outflow Tract Name Value Normal LVOT 2D LVOT Diameter 2.1 cm LVOT Doppler LVOT Peak Gradient 5 mmHg LVOT Mean Gradient 3 mmHg LVOT VTI 19 cm LVOT VTI/AV VTI Ratio 0.9 LVOT Stroke Volume 64 ml LVOT CO 17.3 l/min LVOT CI
[2021-11-19] MEDS: HYDROmorphone HCL INJ (*CRX) 1 MG/ML SYR 0.3 MG IV PUSH ×3 (00:37→16:45)
[2021-11-19] MEDS: ALBUTEROL SULFATE NEB 2.5 MG/3 ML INH INHALATION ×4 (02:00→20:09)
[2021-11-19] MEDS: IPRATROPIUM BR 0.02% INH SOLN 0.5 MG/2.5 ML VIAL INHALATION ×4 (02:00→20:10)
[2021-11-19] MEDS: SODIUM BICARBONATE 8.4% 150 MEQ in WATER, STERILE FOR INJECTION 950 ML 100 MEQ IV CONT (03:00)
[2021-11-19 04:11] LABS: Glucose Point of Care 105 mg/dl (65-105)
[2021-11-19 04:57] LABS: Hematocrit 37.4 % (42.0-52.0); Hemoglobin 13.1 g/dL (14.0-18.0); Mean Corpuscular Hemoglobin 32.6 pg (26-34); Mean Platelet Volume 11.2 fl (7.4-10.4); Platelet Count Result 201 k/mm3 (150-375); Red Blood Count 4.02 M/mm3 (4.6-6.20)
[2021-11-19 05:10] LABS: Lactic Acid Reflex 1.5 mmol/L (0.7-2.0)
[2021-11-19 05:12] LABS: Creatinine Urine 48.8 mg/dL
[2021-11-19 05:13] LABS: Potassium Urine Random 33.1 meq/L; Sodium Urine Random 92 meq/L
[2021-11-19 05:24] LABS: Appearance Urine Slightly Cloudy (Clear); Bilirubin Urine Negative (Negative); Blood Urine 3+ (Negative); Color Urine Yellow (Yellow); Glucose Urine UA Negative (Negative); Ketones Urine Negative (Negative); Leukocyte Esterase Ur Negative LEU/UL (NEGATIVE); Nitrate Urine Negative (Negative); Protein Urine 2+ mg/dL (Negative); Specific Grav Ur 1.015 (1.001-1.035); Urobilinogen Urine 0.2 mg/dL (<2.0)
[2021-11-19 05:28] LABS: Bacteria Urine Trace /hpf; Mucus Urine Rare /lpf; RBC Urine 21-50 /hpf (0-2); Squamous Epithelial Cell Urine Occasional /hpf (Few); WBC Clumps Urine Present /HPF; WBC Urine 21-30 /hpf (0-3)
[2021-11-19 05:29] LABS: Add Urine Microscopic? YES
[2021-11-19 05:36] LABS: Eosinophil Urine None Seen % (None Seen)
[2021-11-19 05:42] LABS: Band Neutrophils Percent 36 % (0-6); Lymphocytes Percent Manual 4 % (18-44); Monocytes Percent Manual 7 % (3-9); Neutrophils Percent Manual 53 % (46-73); Total Cells Counted 100
[2021-11-19 05:43] LABS: Platelet Estimate Adequate (Adequate)
[2021-11-19 05:51] LABS: Alanine Aminotransferase 618 U/L (6-50); Albumin Level 2.8 g/dL (3.5-5.1); Alkaline Phosphatase 56 U/L (38-126); Anion Gap 18 mmol/L (8-16); Bilirubin,Total 0.9 mg/dL (0.2-1.3); Calcium 4.9 mg/dL (8.4-10.2); Carbon Dioxide 30 mmol/L (22-30); Chloride 82 mmol/L (98-107); Glucose 102 mg/dL (65-110); Magnesium 1.6 mg/dL (1.6-2.3); Phosphorus 7.1 mg/dL (2.5-4.5); Potassium 4.4 mmol/L (3.4-5.0); Sodium 130 mmol/L (137-145)
[2021-11-19 06:24] LABS: Estimated CRCL calculation 5 ml/min; Estimated Glomerular Filt Rate 6
[2021-11-19] MEDS: CENTRAL LINE FLUSH 10 ML IV PUSH ×4 (06:44→22:08)
[2021-11-19 06:49] LABS: Aspartate Amino Transferase 874 U/L (17-59); Blood Urea Nitrogen 144 mg/dL (9-20)
[2021-11-19] MEDS: NOREPINEPHRINE 8 MG/D5W 250 ML 8 MG/250 ML BAG 28.13 MG IV CONT ×2 (08:05→16:46)
[2021-11-19] MEDS: dexmedeTOMIDine 400 MCG/100 ML 400 MCG/100 ML BAG IV CONT (08:08)
[2021-11-19] MEDS: prednisoLONE ACETATE 1% OPHTH 5 ML 1 DROP LEFT EYE ×2 (08:09→22:07)
[2021-11-19] MEDS: DORZOLAMIDE/TIMOLOL OPHTH SOL 10 ML BOTTLE 1 DROP LEFT EYE ×2 (08:09→22:07)
[2021-11-19] MEDS: CALCIUM GLUC 2,000 MG/NS 100ML 2,000 MG/100 ML BAG 100 MG IVPB (08:09)
[2021-11-19] MEDS: PANTOPRAZOLE SODIUM IV 40 MG VIAL IV PUSH (08:10)
[2021-11-19] MEDS: SODIUM CHLORIDE 0.9% IV 1,000 ML 100 ML IV CONT ×2 (08:24→18:42)
--- NOTE | 2021-11-19 08:51 | PM.PNNEP ---
Progress Note: A&P Assessment and Plan (1) ORQUIDEA (acute kidney injury): Code(s): N17.9 - Acute kidney failure, unspecified Status: Acute Assessment and Plan: The patient has acute kidney injury. It is unclear if there is an element of chronic kidney disease or not. He does not go to see the doctor. Ultrasound shows 9cm kidneys which seems small for a man who is 5ft 10. His kidneys are at least as echogenic as the liver and so there is abnormal echogenicity there. I suspect that there is an element of chronic renal failure. The chronic kidney disease could be from hypertension and chronic ibuprofen use. He possibly has an acute component as well. He has hypotension and is probably dehydrated. So pre renal issues are certainly at play. He was on ibuprofen. he has rhabdomyolysis. He is not making any urine. He looks dehydrated still so we will continue IV fluids. Will change bicarb to normal saline since his bicarbonate level is up and he is not making urine, so no need for the rhabdomyolysis. Discussed with Dr. Somers. He could have uremia and this could be contributing to why he is so sleepy besides his septic shock. Will initiate dialysis. (2) Rhabdomyolysis: Code(s): M62.82 - Rhabdomyolysis Status: Acute Assessment and Plan: The patient has a CPK of greater than 16,000. Repeat is pending. He is not making much urine so will stop the bicarbonate part of the IV fluids. (3) Septic shock: Code(s): A41.9 - Sepsis, unspecified organism; R65.21 - Severe sepsis with septic shock Status: Acute Assessment and Plan: The patient is hypotensive. Cultures are drawn. He is getting Zosyn. (4) DKA (diabetic ketoacidosis): Code(s): E11.10 - Type 2 diabetes mellitus with ketoacidosis without coma Status: Acute Assessment and Plan: Diabetes is apparently a new diagnosis for this patient. He has high sugars and also a positive beta hydroxybutyrate. His CO2 was 17 on admission and has risen to 24. When his bicarbonate was 17 his anion gap was 36. Most likely because of his COPD he has chronic CO2 retention and has a chronically high bicarbonate based on the very high delta anion gap and relatively low delta bicarb. some of the anion gap is due to his BPH OB, some due to lactate, and some due to uremic toxins. (5) SBO (small bowel obstruction): Code(s): K56.609 - Unspecified intestinal obstruction, unspecified as to partial versus complete obstruction Status: Acute Assessment and Plan: Surgery has seen the patient. He is getting volume resuscitated to try to make him more stable. Surgery will follow him along decide if or when to take him to surgery. (6) HTN (hypertension), benign: Code(s): I10 - Essential (primary) hypertension Status: Acute Assessment and Plan: He is not on any antihypertensives. (7) COPD (chronic obstructive pulmonary disease): Code(s): J44.9 - Chronic obstructive pulmonary disease, unspecified Status: Acute Assessment and Plan: Getting supportive care Subjective Date/time seen: 11/19/21 08:51 Interval history: Fabio looks about the same today. Resting comfortably in bed. A little bit agitated and needs to be restrained so he does not pull anything out. Respiratory therapy just finished with them. Oxygenation is good on nasal cannula 2liters/minute. Exam Narrative: WDWN in NAD skin no rash head ncat lungs clear cor reg no rub abd BS+ nontender and soft ext no edema. Objective Data Vital Signs Vital Signs: Vital Signs - 24 hr 11/18/21 09:18 11/18/21 09:30 11/18/21 09:31 Temperature 36.4 C 36.6 C 36.6 C Pulse Rate 78 83 84 Respiratory Rate 28 H 32 H 26 H Blood Pressure 130/97 H Pulse Oximetry 96 94 91 Oxygen Delivery Oxygen Flow Rate 11/18/21 10:30 11/18/21 10:45 11/18/21 11:00 Temperature 37.1 C 37.
--- NOTE | 2021-11-19 09:09 | WPDINTPN ---
Progress Note: A&P Assessment and Plan (1) Septic shock: Code(s): A41.9 - Sepsis, unspecified organism; R65.21 - Severe sepsis with septic shock Status: Acute Assessment and Plan: 11/18: Patient presenting with abdominal pain into 3 days, acute kidney injury, hypotension, confusion. Patient was hypotensive was in the ER, IJ central line was inserted and patient was started on Levophed -patient has been adequately fluid resuscitated in the ER at ICU -continue Levophed, maintain MAP > 65 mmHg adequate end organ perfusion -he is anuric -lactic acid normalized -liver enzymes trending down -Source likely abdomen - Continue Zosyn (11/18) (2) SBO (small bowel obstruction): Code(s): K56.609 - Unspecified intestinal obstruction, unspecified as to partial versus complete obstruction Status: Acute Assessment and Plan: Patient presented with abdominal pain, was found to have small-bowel obstruction with possible perforation -11/18/2021 CT abdomen pelvis: 1. Small bowel obstruction with free intraperitoneal air, suspicious for bowel perforation.2:? Distended gallbladder, nonspecific.3: Ventral abdominal wall hernias containing fat. -surgery following the patient, poor surgical candidate, will manage conservatively with serial exams, fluid resuscitation, NG tube decompression, bowel rest. -Zosyn, renally dosed -11/19: Obstructive series NG tube in stomach, dilated small bowel, adynamic ileus versus obstruction (3) Bowel perforation: Code(s): K63.1 - Perforation of intestine (nontraumatic) Status: Acute Assessment and Plan: As above (4) ORQUIDEA (acute kidney injury): Code(s): N17.9 - Acute kidney failure, unspecified Status: Acute Assessment and Plan: Presented with acute kidney injury with a creatinine of 11.7 and BUN of 126, likely related to shock, infection, hypovolemia, small-bowel obstruction -will aggressively fluid resuscitate the patient -patient on sodium bicarb infusion, CO2 30 this morning, discontinue bicarb infusion and start patient on normal saline -hypokalemia has resolved -patient with rhabdomyolysis elevated CK level, continue IV fluids -11/18 renal ultrasound with no hydronephrosis, kidney -continue to monitor renal function, electrolytes and urine output -discussed with Nephrology, will place dialysis catheter start dialysis (5) Hyperglycemia: Code(s): R73.9 - Hyperglycemia, unspecified Status: Acute Assessment and Plan: Patient blood sugars have been erratic, they range between 40-600 -hyperglycemia has resolved, -Accu-Cheks and sliding scale insulin q.4 hours -hemoglobin A1c is 5.4 this admission (6) COPD (chronic obstructive pulmonary disease): Code(s): J44.9 - Chronic obstructive pulmonary disease, unspecified Status: Acute Assessment and Plan: History of COPD, continue bronchodilators and supplemental oxygen to maintain O2 sats greater than 92% Plan DVT prophylaxis: Heparin SQ Stress ulcer prophylaxis: Protonix Nutrition: NPO for now, NG tube to suction 11/18/2021:Called and left msg for Gentry (son) ph: [phone], Code Status: Full code Critical Care Time Spent: 34 minutes Due to a high probability of clinically significant, life threatening deterioration, the patient required my highest level of preparedness to intervene emergently and I personally spent this critical care time directly and personally managing the patient. This critical care time included obtaining a history; examining the patient; pulse oximetry; ordering and review of studies; arranging urgent treatment with development of a management plan; evaluation of patient's response to treatment; frequent reassessment; and discussions with other providers. It was exclusive of separately billable procedures and treating other patients and teaching time. Please see Assessment and Plan section and the rest of the note for further information on pa
[2021-11-19 09:34] LABS: Creatine Kinase > 16000 U/L (55-170)
[2021-11-19 10:18] LABS: Hepatitis B Surface Antigen Negative (Negative)
[2021-11-19 10:37] LABS: Hepatitis B Surface Anti Res Negative; Hepatitis C Virus Antibody Negative (Negative)
[2021-11-19 12:12] LABS: Glucose Point of Care 73 mg/dl (65-105)
[2021-11-19 12:12] LABS: Glucose Point of Care 130 mg/dl (65-105)
--- NOTE | 2021-11-19 12:22 | PM.IMPN ---
Progress Note: A&P Assessment and Plan (1) Septic shock: Code(s): A41.9 - Sepsis, unspecified organism; R65.21 - Severe sepsis with septic shock Status: Acute Assessment and Plan: Patient brought to the ED for abdominal pain and found to have SBO with possible perforation. Severe metabolic acidosis noted and felt to be multifactorial. HoTN in the ED requiring Levophed. Continue supportive care. Wean Levophed as tolerated to keep MAP>65. Continue IV fluids. (2) Bowel perforation: Code(s): K63.1 - Perforation of intestine (nontraumatic) Status: Acute Assessment and Plan: CT scan showing small-bowel obstruction with free intraperitoneal air suspicious for bowel perforation. Given the blood from the NG tube, consider perforated peptic ulcer. Consider also perforation from dilated bowel/stomach. General surgery was consulted. It was felt patient was a poor surgical candidate and conservative management was recommended with NG tube decompression and bowel rest. Continue to follow closely in the ICU. Patient remains a full code. Per breaker mechanic, family at odds on how to proceed. Continue PPI. (3) ORQUIDEA (acute kidney injury): Code(s): N17.9 - Acute kidney failure, unspecified Status: Acute Assessment and Plan: Patient with oliguric ORQUIDEA with suspected underlying CKD of unknown severity. The only other lab work available is a BUN 48 and creatinine 4.3 three days CHEMICAL RESEARCH WORKER but is unclear if this was abnormal. No other lab work to compare. Patient with acute kidney injury with BUN of 126 and creatinine 11.7 on admission. This is most likely contributing to the metabolic acidosis and hyperkalemia. Potassium has normalized. Phos remains elevated. Calcium very low. Mag low normal. Monitor UOP and electrolytes. HD being considered. UOP remains poor. Total creatinine kinase is greater than 16,000 consistent with rhabdomyolysis which could be the etiology of his acute kidney injury as well. Continue IV fluids (4) DKA (diabetic ketoacidosis): Code(s): E11.10 - Type 2 diabetes mellitus with ketoacidosis without coma Status: Acute Assessment and Plan: Unclear patient has DKA since the metabolic gap acidosis could be explained by other etiologies. It is also unclear if he had hypoglycemia in the ED or these were lab errors. Glucose has remained stable now. A1c is 5.4. He did not require an insulin drip. Will continue to follow. (5) Rhabdomyolysis: Code(s): M62.82 - Rhabdomyolysis Status: Acute Assessment and Plan: Total creatinine kinase is greater than 16,000. Etiology is unclear but history is limited. He is not on a statin. Could be related to bedrest. Follow closely and monitor serial levels. Continue IV fluids (6) SBO (small bowel obstruction): Code(s): K56.609 - Unspecified intestinal obstruction, unspecified as to partial versus complete obstruction Status: Acute Assessment and Plan: Patient has dilated proximal small bowel with gastric distension and collapsed distal small bowel consistent with small-bowel obstruction. There are multiple areas of free intraperitoneal air suspicious for perforation. Repeat KUB showing persistent findigns. As above. (7) Hyperkalemia: Code(s): E87.5 - Hyperkalemia Status: Acute Assessment and Plan: Potassium was 6.6 on admission related to acute kidney injury and the metabolic acidosis. With IV fluids and IV bicarb, potassium has normalized. Continue to follow closely. Treat accordingly. (8) HTN (hypertension), benign: Code(s): I10 - Essential (primary) hypertension Status: Acute Assessment and Plan: Patient has a history of hypertension and was on losartan. This is obviously on hold at this time. (9) COPD (chronic obstructive pulmonary disease): Code(s): J44.9 - Chronic obstructive pulmonary disease, unspecified Statu
[2021-11-19 12:40] LABS: Glucose Point of Care 87 mg/dl (65-105)
--- NOTE | 2021-11-19 14:02 | PM.PNGS ---
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 plan is to proceed to comfort care given poor quality of life and HD requirement (2) SBO (small bowel obstruction): Code(s): K56.609 - Unspecified intestinal obstruction, unspecified as to partial versus complete obstruction Status: Acute Assessment and Plan: exam improved, cont NG decompression, given decision for withdrawl of care, will sign off, call c ?s, issues (3) Bowel perforation: Code(s): K63.1 - Perforation of intestine (nontraumatic) Status: Acute Assessment and Plan: exam improved, see above Subjective Subjective Date/Time Seen: 11/19/21 14:02 events over last 24 hours noted, still on Levophed but sl improved Review of Systems Review of Systems: ROS unobtainable: Yes unobtainable due to medical condition and unobtainable due to mental status Exam Const: General: in distress mild and ill appearing Orientation/consciousness: oriented to person Resp: Auscultation: diminished lung sounds Cardio: Rate: regular rate Rhythm: regular rhythm GI: Inspection: normal to inspection and distended GI Palp: Yes abdominal tenderness, Yes Soft to palpation, Yes Tenderness to palpation present (GI), No Guarding due to palpation present (GI) and No Rigid due to palpation Objective Data Vital Signs Vital Signs: Vital Signs - 24 hr 11/18/21 14:21 11/18/21 14:22 11/18/21 14:45 Temperature Pulse Rate 86 86 85 Respiratory Rate 23 H 20 Blood Pressure 116/98 H Pulse Oximetry 85 L Oxygen Delivery Nasal Cannula Oxygen Flow Rate 2 11/18/21 16:00 11/18/21 16:00 11/18/21 16:00 Temperature 36.6 C Pulse Rate 75 75 75 Respiratory Rate 18 18 Blood Pressure 111/70 Pulse Oximetry 96 91 Oxygen Delivery Nasal Cannula Oxygen Flow Rate 4 11/18/21 15:25 11/18/21 18:00 11/18/21 18:00 Temperature Pulse Rate 75 78 78 Respiratory Rate 18 15 Blood Pressure 130/58 L Pulse Oximetry 98 Oxygen Delivery Oxygen Flow Rate 11/18/21 20:40 11/18/21 20:50 11/18/21 20:45 Temperature Pulse Rate 84 87 86 Respiratory Rate 12 10 L 12 Blood Pressure Pulse Oximetry 95 Oxygen Delivery Oxygen Flow Rate 2 11/18/21 20:02 11/18/21 22:01 11/18/21 20:00 Temperature 36.9 C Pulse Rate 107 H 87 Respiratory Rate 20 21 H Blood Pressure 124/87 106/64 Pulse Oximetry 96 97 94 Oxygen Delivery Nasal Cannula Oxygen Flow Rate 2 11/19/21 00:00 11/19/21 00:01 11/19/21 00:31 Temperature 36.3 C L Pulse Rate 86 98 Respiratory Rate 14 17 Blood Pressure 99/56 L 118/65 Pulse Oximetry 92 92 Oxygen Delivery Nasal Cannula Oxygen Flow Rate 2 11/18/21 20:00 11/18/21 22:00 11/19/21 00:00 Temperature Pulse Rate 109 H 88 85 Respiratory Rate Blood Pressure Pulse Oximetry Oxygen Delivery Oxygen Flow Rate 11/19/21 02:00 11/19/21 02:00 11/19/21 02:00 Temperature Pulse Rate 83 83 82 Respiratory Rate 12 15 Blood Pressure 115/55 L Pulse Oximetry 97 Oxygen Delivery Oxygen Flow Rate 11/19/21 02:10 11/19/21 04:00 11/19/21 04:02 Temperature 37.2 C Pulse Rate 84 100 Respiratory Rate 14 15 Blood Pressure 110/67 Pulse Oximetry 92 Oxygen Delivery Nasal Cannula Oxygen Flow Rate 2 11/19/21 04:18 11/19/21 05:03 11/19/21 04:00 Temperature Pulse Rate 82 84 93 Respiratory Rate 18 14 Blood Pressure 121/70 109/68 Pulse Oximetry 94 Oxygen Delivery Oxygen Flow Rate 11/19/21 06:00 11/19/21 06:00 11/19/21 07:42 Temperature Pulse Rate 80 80 80 Respiratory Rate 11 L 14 Blood Pressure 98/53 L Pulse Oximetry 100 Oxygen Delivery Oxygen Flow Rate 11/19/21 07:45 11/19/21 07:5
[2021-11-19 17:05] LABS: Glucose Point of Care 80 mg/dl (65-105)
[2021-11-19 18:46] LABS: Appearance Urine Slightly Cloudy (Clear); Bilirubin Urine 1+ (Negative); Blood Urine 3+ (Negative); Color Urine Yellow (Yellow); Glucose Urine UA Negative (Negative); Ketones Urine Negative (Negative); Leukocyte Esterase Ur Negative LEU/UL (Negative); Nitrate Urine Negative (Negative); Protein Urine 2+ mg/dL (Negative); Specific Grav Ur 1.015 (1.001-1.035); Urobilinogen Urine 0.2 mg/dL (<2.0); pH Urine 5.5 (5.0-9.0)
[2021-11-19 18:52] LABS: Amorphous Sediment Urine Few; Bacteria Urine Trace /hpf; Mucus Urine Rare /lpf; Squamous Epithelial Cell Urine Rare /hpf (Few)
[2021-11-19 18:55] LABS: Add Urine Microscopic? YES
[2021-11-19 19:04] LABS: Sodium Urine Random 29 meq/L
--- NOTE | 2021-11-19 20:15 | PC.NURSE ---
Precedex gtt running at 0.2 upon initial assessment as reported by heather RN, but is not reflected in charting.
[2021-11-19] MEDS: DEXTROSE 50% 25 GM/50 ML SYRINGE IV PUSH (20:23)
[2021-11-19 20:37] LABS: Glucose Point of Care 76 mg/dl (65-105)
[2021-11-19 20:37] LABS: Glucose Point of Care 66 mg/dl (65-105)
[2021-11-19] MEDS: DEXTROSE 5%/0.9% SOD CHL 1,000 ML 100 ML IV CONT (20:48)
[2021-11-19] MEDS: NOREPINEPHRINE 8 MG/D5W 250 ML 8 MG/250 ML BAG 22.5 MG IV CONT (22:06)
[2021-11-19] MEDS: HEPARIN SODIUM 5,000 UNITS/ML VIAL 5000 UNITS SUB-Q (22:07)
[2021-11-19 22:11] LABS: Glucose Point of Care 119 mg/dl (65-105)
[2021-11-20] VITALS (86 sets, daily range): BP systolic 94–140; BP diastolic 50–88; PULSE 58–82; RESP 9–29; TEMP 36.7–37.4; O2SAT 83–100
[2021-11-20 00:52] LABS: Glucose Point of Care 100 mg/dl (65-105)
[2021-11-20] MEDS: IPRATROPIUM BR 0.02% INH SOLN 0.5 MG/2.5 ML VIAL INHALATION ×4 (03:26→20:28)
[2021-11-20] MEDS: ALBUTEROL SULFATE NEB 2.5 MG/3 ML INH INHALATION ×4 (03:26→20:28)
[2021-11-20 04:59] LABS: Hematocrit 32.8 % (42.0-52.0); Hemoglobin 11.7 g/dL (14.0-18.0); Mean Corpuscular HGB Conc 35.7 g/dl (32-36); Mean Corpuscular Hemoglobin 33.2 pg (26-34); Mean Corpuscular Volume 93.2 fl (80-100); Platelet Count Result 178 k/mm3 (150-375); Red Blood Count 3.52 M/mm3 (4.6-6.20); Red Cell Distribution Width 12.9 % (11.5-14.5); White Blood Count 18.2 K/mm3 (4.5-10.0)
[2021-11-20 05:08] LABS: Lactic Acid Reflex 1.2 mmol/L (0.7-2.0)
[2021-11-20 05:12] LABS: Alanine Aminotransferase 415 U/L (6-50); Albumin Level 2.7 g/dL (3.5-5.1); Alkaline Phosphatase 83 U/L (38-126); Anion Gap 16 mmol/L (8-16); Aspartate Amino Transferase 488 U/L (17-59); Bilirubin,Total 0.7 mg/dL (0.2-1.3); Calcium 5.2 mg/dL (8.4-10.2); Carbon Dioxide 27 mmol/L (22-30); Chloride 86 mmol/L (98-107); Glucose 163 mg/dL (65-110); Magnesium 1.8 mg/dL (1.6-2.3); Phosphorus 6.1 mg/dL (2.5-4.5); Potassium 3.8 mmol/L (3.4-5.0); Sodium 129 mmol/L (137-145)
[2021-11-20 05:26] LABS: Band Neutrophils Percent 6 % (0-6); Eosinophils Absolute Manual 0.18 K/mm3 (0.02-0.5); Eosinophils Percent Manual 1 % (0-4); Lymphocytes Absolute Manual 1.09 K/mm3 (1.1-4.5); Monocytes Absolute Manual 0.91 K/mm3 (0.1-0.90); Monocytes Percent Manual 5 % (3-9); Neutrophils Absolute Manual 16.01 K/mm3 (1.3-6.7); Neutrophils Percent Manual 82 % (46-73); Platelet Estimate Adequate (Adequate); Total Cells Counted 100
[2021-11-20 05:31] LABS: Blood Urea Nitrogen 144 mg/dL (9-20)
[2021-11-20 06:14] LABS: Estimated CRCL calculation 6 ml/min; Estimated Glomerular Filt Rate 5
[2021-11-20 06:25] LABS: Creatine Kinase > 16000 U/L (55-170)
[2021-11-20] MEDS: CENTRAL LINE FLUSH 10 ML IV PUSH ×4 (06:35→21:15)
[2021-11-20] MEDS: DEXTROSE 5%/0.9% SOD CHL 1,000 ML 100 ML IV CONT (08:35)
[2021-11-20] MEDS: DORZOLAMIDE/TIMOLOL OPHTH SOL 10 ML BOTTLE 1 DROP LEFT EYE ×2 (08:38→21:18)
[2021-11-20] MEDS: prednisoLONE ACETATE 1% OPHTH 5 ML 1 DROP LEFT EYE ×2 (08:38→21:18)
[2021-11-20] MEDS: HEPARIN SODIUM 5,000 UNITS/ML VIAL 5000 UNITS SUB-Q ×2 (08:38→21:18)
[2021-11-20] MEDS: PANTOPRAZOLE SODIUM IV 40 MG VIAL IV PUSH (08:39)
[2021-11-20 08:50] LABS: Glucose Point of Care 115 mg/dl (65-105)
--- NOTE | 2021-11-20 09:49 | PM.PNNEP ---
Progress Note: A&P Assessment and Plan (1) ORQUIDEA (acute kidney injury): Code(s): N17.9 - Acute kidney failure, unspecified Status: Acute Assessment and Plan: The patient has acute kidney injury. It is unclear if there is an element of chronic kidney disease or not. He does not go to see the doctor. Ultrasound shows 9cm kidneys which seems small for a man who is 5ft 10. His kidneys are at least as echogenic as the liver and so there is abnormal echogenicity there. I suspect that there is an element of chronic renal failure. The chronic kidney disease could be from hypertension and chronic ibuprofen use. There is also an acute component. Most likely from dehydration, hypotension, ibuprofen use, rhabdomyolysis, and infection /abdominal process. He is still not making any urine. He looks dehydrated still so we will continue IV fluids. I agree with reducing the rate to 75 an hour. Family decided that he would not get dialysis. They have said no machines . Two sons are in town and a daughter is coming in from [place]. (2) Rhabdomyolysis: Code(s): M62.82 - Rhabdomyolysis Status: Acute Assessment and Plan: The patient has a CPK of greater than 16,000. Repeat is Still greater than 16,000. (3) Septic shock: Code(s): A41.9 - Sepsis, unspecified organism; R65.21 - Severe sepsis with septic shock Status: Acute Assessment and Plan: The patient is hypotensive. Cultures are drawn and negative so far. He is getting Zosyn. (4) DKA (diabetic ketoacidosis): Code(s): E11.10 - Type 2 diabetes mellitus with ketoacidosis without coma Status: Acute Assessment and Plan: Diabetes is apparently a new diagnosis for this patient. He has high sugars and also a positive beta hydroxybutyrate. sugars are better (5) SBO (small bowel obstruction): Code(s): K56.609 - Unspecified intestinal obstruction, unspecified as to partial versus complete obstruction Status: Acute Assessment and Plan: Surgery has seen the patient. He is getting volume resuscitated to try to make him more stable. Surgery is on the case (6) HTN (hypertension), benign: Code(s): I10 - Essential (primary) hypertension Status: Acute Assessment and Plan: He is not on any antihypertensives. (7) COPD (chronic obstructive pulmonary disease): Code(s): J44.9 - Chronic obstructive pulmonary disease, unspecified Status: Acute Assessment and Plan: Getting supportive care Subjective Date/time seen: 11/20/21 09:49 Interval history: Fabio looks about the same today. He answers questions with 1 word such as yes or no but his answers make no sense. Exam Narrative: WDWN in NAD skin no rash head ncat lungs clear cor reg no rub abd Bowel sounds hypoactive and somewhat tender diffusely. ext no edema. Objective Data Vital Signs Vital Signs: Vital Signs - 24 hr 11/19/21 10:00 11/19/21 10:00 11/19/21 12:00 Temperature Pulse Rate 82 82 82 Respiratory Rate 18 12 Blood Pressure 115/61 Pulse Oximetry 100 100 Oxygen Delivery Room Air 11/19/21 12:00 11/19/21 12:00 11/19/21 14:00 Temperature 37.2 C Pulse Rate 82 82 98 Respiratory Rate 12 14 Blood Pressure 106/49 L Pulse Oximetry 100 Oxygen Delivery 11/19/21 14:10 11/19/21 14:00 11/19/21 14:00 Temperature 36.8 C Pulse Rate 91 101 H 101 H Respiratory Rate 15 18 Blood Pressure 100/56 L Pulse Oximetry 100 Oxygen Delivery 11/19/21 16:46 11/19/21 16:00 11/19/21 16:00 Temperature Pulse Rate 78 66 66 Respiratory Rate 13 Blood Pressure 127/50 L Pulse Oximetry 97 Oxygen Delivery Room Air 11/19/21 16:00 11/19/21 18:00 11/19/21 18:00 Temperature 37.2 C 37.2 C Pulse Rate 80 80 80 Respiratory Rate 13 Blood Pressure 109/55 L Pulse Oximetry 97 Oxygen Delivery 11/19/21 19:19
[2021-11-20 11:25] LABS: Glucose Point of Care 124 mg/dl (65-105)
--- NOTE | 2021-11-20 11:32 | WPDINTPN ---
Progress Note: A&P Assessment and Plan (1) Septic shock: Code(s): A41.9 - Sepsis, unspecified organism; R65.21 - Severe sepsis with septic shock Status: Acute Assessment and Plan: 11/18: Patient presenting with abdominal pain into 3 days, acute kidney injury, hypotension, confusion. Patient was hypotensive was in the ER, IJ central line was inserted and patient was started on Levophed -patient has been adequately fluid resuscitated in the ER at ICU -continue Levophed, maintain MAP > 65 mmHg adequate end organ perfusion -minimal urine output -lactic acid normalized -liver enzymes trending down -Source likely abdomen - Continue Zosyn (11/18) (2) SBO (small bowel obstruction): Code(s): K56.609 - Unspecified intestinal obstruction, unspecified as to partial versus complete obstruction Status: Acute Assessment and Plan: Patient presented with abdominal pain, was found to have small-bowel obstruction with possible perforation -11/18/2021 CT abdomen pelvis: 1. Small bowel obstruction with free intraperitoneal air, suspicious for bowel perforation.2:? Distended gallbladder, nonspecific.3: Ventral abdominal wall hernias containing fat. -surgery following the patient, poor surgical candidate, will manage conservatively with serial exams, fluid resuscitation, NG tube decompression, bowel rest. -Zosyn, renally dosed -11/20: Persistently dilated small bowel, consistent with small bowel obstruction -continue NG tube to suction antibiotics, bowel rest (3) Bowel perforation: Code(s): K63.1 - Perforation of intestine (nontraumatic) Status: Acute Assessment and Plan: As above (4) ORQUIDEA (acute kidney injury): Code(s): N17.9 - Acute kidney failure, unspecified Status: Acute Assessment and Plan: Presented with acute kidney injury with a creatinine of 11.7 and BUN of 126, likely related to shock, infection, hypovolemia, small-bowel obstruction -will aggressively fluid resuscitate the patient -patient on sodium bicarb infusion, CO2 30 this morning, discontinue bicarb infusion and start patient on normal saline -hypokalemia has resolved -patient with rhabdomyolysis CK levels remain elevated, will decrease IV fluids to 75 mL/hour given worsening airspace opacities on chest x-ray -11/18 renal ultrasound with no hydronephrosis, -continue to monitor renal function, electrolytes and urine output -discussed with Nephrology, -discussed with family, they stated that the patient would not want dialysis or connected to machines, family wants to honor the patient's wishes (5) Hyperglycemia: Code(s): R73.9 - Hyperglycemia, unspecified Status: Acute Assessment and Plan: Patient blood sugars have been erratic, they range between 40-600 -hyperglycemia has resolved, -Accu-Cheks and sliding scale insulin q.4 hours -hemoglobin A1c is 5.4 this admission 11/19: Patient currently hypoglycemic, requiring D5 normal saline IV fluids (6) COPD (chronic obstructive pulmonary disease): Code(s): J44.9 - Chronic obstructive pulmonary disease, unspecified Status: Acute Assessment and Plan: History of COPD, continue bronchodilators and supplemental oxygen to maintain O2 sats greater than 92% Plan DVT prophylaxis: Heparin SQ Stress ulcer prophylaxis: Protonix Nutrition: NPO for now, NG tube to suction 11/20/2021: Discussed with Gentry patient's son was also presumably the POA. He stated that Samantha the daughter is coming from [facility], they may proceed with withdrawal of support on 11/21/2021 11/19/2021: I discussed 8 family members in the ICU waiting room and updated all of them regarding the patient's condition, the aware of the possible perforation along with my bowel obstruction, kidney injury, rhabdomyolysis, septic shock. All of them were of the view that they want to respect patient's wishes. 11/19/2021:? The daughter, Samantha returned my call, I had a low discussion w
--- NOTE | 2021-11-20 13:30 | PM.IMPN ---
Progress Note: A&P Assessment and Plan (1) Septic shock: Code(s): A41.9 - Sepsis, unspecified organism; R65.21 - Severe sepsis with septic shock Status: Acute Assessment and Plan: Patient brought to the ED for abdominal pain and found to have SBO with possible perforation. Severe metabolic acidosis noted and felt to be multifactorial. HoTN in the ED requiring Levophed. Continue supportive care. Wean Levophed as tolerated to keep MAP>65. Continue IV fluids with bicarb. (2) Bowel perforation: Code(s): K63.1 - Perforation of intestine (nontraumatic) Status: Acute Assessment and Plan: CT scan showing small-bowel obstruction with free intraperitoneal air suspicious for bowel perforation. Given the blood from the NG tube, consider perforated peptic ulcer. Continue PPI. Consider also perforation from dilated bowel/stomach. General surgery was consulted. It was felt patient was a poor surgical candidate and conservative management was recommended with NG tube decompression and bowel rest. Continue to follow closely in the ICU. Patient is DNR now (3) ORQUIDEA (acute kidney injury): Code(s): N17.9 - Acute kidney failure, unspecified Status: Acute Assessment and Plan: Patient with oliguric ORQUIDEA with suspected underlying CKD of unknown severity.? The only other lab work available is a BUN 48 and creatinine 4.3 three days [employer] but is unclear if this was abnormal.? No other lab work to compare.? Patient with acute kidney injury with BUN of 126 and creatinine 11.7 on admission.? This is most likely contributing to the metabolic acidosis and hyperkalemia. Potassium has normalized. Phos remains elevated but better. Calcium very low still. Mag better. Metabolic acidosis resolved. Despite the improvement in the electrolytes, BUN now 144 and Cr 11.4. Monitor UOP and electrolytes. HD was being considered but family not interested. UOP remains poor. Total creatinine kinase is greater than 16,000 consistent with rhabdomyolysis which could be the etiology of his acute kidney injury as well.? Continue IV fluids. Dtr to come in this evening to determine plan of care. (4) DKA (diabetic ketoacidosis): Code(s): E11.10 - Type 2 diabetes mellitus with ketoacidosis without coma Status: Acute Assessment and Plan: Unclear patient has DKA since the metabolic gap acidosis could be explained by other etiologies.? It is also unclear if he had hypoglycemia in the ED or these were lab errors.? Glucose has remained stable now.? A1c is 5.4.? He did not require an insulin drip.? Will continue to follow. (5) Rhabdomyolysis: Code(s): M62.82 - Rhabdomyolysis Status: Acute Assessment and Plan: Total creatinine kinase was greater than 16,000. Etiology is unclear but history is limited.? He is not on a statin.? Could be related to bedrest.?Repeat values remain >16K. Follow with serial levels.? Continue IV fluids (6) SBO (small bowel obstruction): Code(s): K56.609 - Unspecified intestinal obstruction, unspecified as to partial versus complete obstruction Status: Acute Assessment and Plan: Patient has dilated proximal small bowel with gastric distension and collapsed distal small bowel consistent with small-bowel obstruction.? There are multiple areas of free intraperitoneal air suspicious for perforation.? Repeat KUB showing persistent findings. As above. (7) Hyperkalemia: Code(s): E87.5 - Hyperkalemia Status: Acute Assessment and Plan: Potassium was 6.6 on admission related to acute kidney injury and the metabolic acidosis.? With IV fluids and IV bicarb, potassium has normalized.? Continue to follow closely.? Treat accordingly. (8) HTN (hypertension), benign: Code(s): I10 - Essential (primary) hypertension Status: Acute Assessment and Plan: Patient has a history of hypertension and was on losartan. This is obviously on hold
[2021-11-20] MEDS: NOREPINEPHRINE 8 MG/D5W 250 ML 8 MG/250 ML BAG 22.5 MG IV CONT (14:40)
[2021-11-20] MEDS: dexmedeTOMIDine 400 MCG/100 ML 400 MCG/100 ML BAG IV CONT (14:43)
[2021-11-20 20:00] LABS: Glucose Point of Care 145 mg/dl (65-105)
[2021-11-20] MEDS: DEXTROSE 5%/0.9% SOD CHL 1,000 ML 75 ML IV CONT (21:15)
[2021-11-20 21:31] LABS: Glucose Point of Care 164 mg/dl (65-105)
[2021-11-21] VITALS (78 sets, daily range): BP systolic 104–151; BP diastolic 53–95; PULSE 57–73; RESP 9–30; TEMP 36.2–37.1; O2SAT 72–100
[2021-11-21 00:15] LABS: Glucose Point of Care 149 mg/dl (65-105)
[2021-11-21] MEDS: ALBUTEROL SULFATE NEB 2.5 MG/3 ML INH INHALATION ×2 (02:57→07:24)
[2021-11-21] MEDS: IPRATROPIUM BR 0.02% INH SOLN 0.5 MG/2.5 ML VIAL INHALATION ×2 (02:57→07:24)
[2021-11-21] MEDS: HYDROmorphone HCL INJ (*CRX) 1 MG/ML SYR 0.3 MG IV PUSH ×2 (04:44→19:02)
[2021-11-21] MEDS: NOREPINEPHRINE 8 MG/D5W 250 ML 8 MG/250 ML BAG 15 MG IV CONT (04:45)
[2021-11-21 05:24] LABS: Hematocrit 34.4 % (42.0-52.0); Hemoglobin 12.1 g/dL (14.0-18.0); Mean Corpuscular HGB Conc 35.2 g/dl (32-36); Mean Corpuscular Hemoglobin 32.9 pg (26-34); Mean Corpuscular Volume 93.5 fl (80-100); Mean Platelet Volume 11.6 fl (7.4-10.4); Platelet Count Result 181 k/mm3 (150-375); Red Blood Count 3.68 M/mm3 (4.6-6.20); Red Cell Distribution Width 13.2 % (11.5-14.5); White Blood Count 24.4 K/mm3 (4.5-10.0)
[2021-11-21 05:54] LABS: Alanine Aminotransferase 279 U/L (6-50); Albumin Level 2.8 g/dL (3.5-5.1); Alkaline Phosphatase 139 U/L (38-126); Anion Gap 18 mmol/L (8-16); Aspartate Amino Transferase 250 U/L (17-59); Bilirubin,Total 1.1 mg/dL (0.2-1.3); Calcium 5.7 mg/dL (8.4-10.2); Carbon Dioxide 24 mmol/L (22-30); Chloride 88 mmol/L (98-107); Estimated CRCL calculation 5 ml/min; Estimated Glomerular Filt Rate 5; Glucose 140 mg/dL (65-110); Magnesium 1.9 mg/dL (1.6-2.3); Phosphorus 5.3 mg/dL (2.5-4.5); Potassium 3.9 mmol/L (3.4-5.0); Sodium 130 mmol/L (137-145)
[2021-11-21 05:56] LABS: Band Neutrophils Percent 4 % (0-6); Lymphocytes Absolute Manual 0.97 K/mm3 (1.1-4.5); Monocytes Percent Manual 7 % (3-9); Neutrophils Absolute Manual 21.71 K/mm3 (1.3-6.7); Neutrophils Percent Manual 85 % (46-73); Platelet Estimate Adequate (Adequate); Total Cells Counted 100
[2021-11-21] MEDS: CENTRAL LINE FLUSH 10 ML IV PUSH ×2 (06:18→14:50)
[2021-11-21 07:31] LABS: Blood Urea Nitrogen 146 mg/dL (9-20)
[2021-11-21 08:07] LABS: Creatine Kinase 12670 U/L (55-170)
[2021-11-21 08:26] LABS: Glucose Point of Care 122 mg/dl (65-105)
[2021-11-21] MEDS: prednisoLONE ACETATE 1% OPHTH 5 ML 1 DROP LEFT EYE (08:50)
[2021-11-21] MEDS: DORZOLAMIDE/TIMOLOL OPHTH SOL 10 ML BOTTLE 1 DROP LEFT EYE (08:50)
[2021-11-21] MEDS: HEPARIN SODIUM 5,000 UNITS/ML VIAL 5000 UNITS SUB-Q (08:51)
[2021-11-21] MEDS: PANTOPRAZOLE SODIUM IV 40 MG VIAL IV PUSH (08:51)
--- NOTE | 2021-11-21 09:07 | PM.IMPN ---
Progress Note: A&P Assessment and Plan (1) Septic shock: Code(s): A41.9 - Sepsis, unspecified organism; R65.21 - Severe sepsis with septic shock Status: Acute Assessment and Plan: Patient brought to the ED for abdominal pain and found to have SBO with possible perforation. Severe metabolic acidosis noted and felt to be multifactorial. HoTN in the ED requiring Levophed. Continue supportive care. Wean Levophed as tolerated to keep MAP>65. Continue IV fluids. Family to come in today to determine plan of care. (2) Bowel perforation: Code(s): K63.1 - Perforation of intestine (nontraumatic) Status: Acute Assessment and Plan: CT scan showing small-bowel obstruction with free intraperitoneal air suspicious for bowel perforation. Given the blood from the NG tube, consider perforated peptic ulcer. Continue PPI. Consider also perforation from dilated bowel/stomach. General surgery was consulted. It was felt patient was a poor surgical candidate and conservative management was recommended with NG tube decompression and bowel rest. Continue to follow closely in the ICU. Patient is DNR now. (3) ORQUIDEA (acute kidney injury): Code(s): N17.9 - Acute kidney failure, unspecified Status: Acute Assessment and Plan: Patient with oliguric ORQUIDEA with suspected underlying CKD of unknown severity.? The only other lab work available is a BUN 48 and creatinine 4.3 three days [employer] but is unclear if this was abnormal.? No other lab work to compare.? Patient with acute kidney injury with BUN of 126 and creatinine 11.7 on admission.? This is most likely contributing to the metabolic acidosis and hyperkalemia. Potassium has normalized. Phos remains elevated. Calcium very low still. Mag better. Metabolic acidosis resolved. Despite the improvement in the electrolytes, BUN now 146 and Cr 12. UOP poor. Monitor UOP and electrolytes. HD was being considered but family not interested. Total creatinine kinase was >16,000 consistent with rhabdomyolysis which could be the etiology of his acute kidney injury as well.? Continue IV fluids. Dtr to come in today to determine plan of care. (4) Rhabdomyolysis: Code(s): M62.82 - Rhabdomyolysis Status: Acute Assessment and Plan: Total creatinine kinase was greater than 16,000. Etiology is unclear but history is limited.? He is not on a statin.? Could be related to bedrest.?Repeat values better. Follow with serial levels.? Continue IV fluids (5) SBO (small bowel obstruction): Code(s): K56.609 - Unspecified intestinal obstruction, unspecified as to partial versus complete obstruction Status: Acute Assessment and Plan: Patient has dilated proximal small bowel with gastric distension and collapsed distal small bowel consistent with small-bowel obstruction.? There are multiple areas of free intraperitoneal air suspicious for perforation.? Repeat KUB showing persistent findings. As above. (6) Hyperkalemia: Code(s): E87.5 - Hyperkalemia Status: Acute Assessment and Plan: Potassium was 6.6 on admission related to acute kidney injury and the metabolic acidosis.? With IV fluids and IV bicarb, potassium has normalized.? Continue to follow closely.? Treat accordingly. (7) DKA (diabetic ketoacidosis): Code(s): E11.10 - Type 2 diabetes mellitus with ketoacidosis without coma Status: Acute Assessment and Plan: Unclear patient has DKA since the metabolic gap acidosis could be explained by other etiologies.? It is also unclear if he had hypoglycemia in the ED or these were lab errors.? BHOB 0.7. A1c 5.4. He did not require an insulin drip.? Overall, felt patient did not have DKA. Glucose has remained stable now.? Will continue to follow. (8) HTN (hypertension), benign: Code(s): I10 - Essential (primary) hypertension Status: Acute Assessment and Plan: Patient has a history of hypertension and wa
--- NOTE | 2021-11-21 11:53 | PM.PNNEP ---
Progress Note: A&P Assessment and Plan (1) ORQUIDEA (acute kidney injury): Code(s): N17.9 - Acute kidney failure, unspecified Status: Acute Assessment and Plan: The patient has acute kidney injury. It is probable that there is an element of chronic kidney disease. Ultrasound shows 9cm kidneys which seems small for a man who is 5ft 10. His kidneys are at least as echogenic as the liver and so there is abnormal echogenicity there. The chronic kidney disease could be from hypertension and chronic ibuprofen use. There is also an acute component. Most likely from dehydration, hypotension, ibuprofen use, rhabdomyolysis, and infection /abdominal process. He is still not making much urine. he has NG-tube suctioning which amounts to a little more than a L per day. Will continue IV fluids to keep him from getting dehydrated. Family decided that he would not get dialysis. They have said no machines . Two sons are in town and a daughter is coming in from [place]. They will have a meeting today. (2) Rhabdomyolysis: Code(s): M62.82 - Rhabdomyolysis Status: Acute Assessment and Plan: The patient has a CPK of greater than 16,000. CK is slowly coming down. (3) Septic shock: Code(s): A41.9 - Sepsis, unspecified organism; R65.21 - Severe sepsis with septic shock Status: Acute Assessment and Plan: The patient is hypotensive. Cultures are drawn and negative so far. He is getting Zosyn. (4) DKA (diabetic ketoacidosis): Code(s): E11.10 - Type 2 diabetes mellitus with ketoacidosis without coma Status: Acute Assessment and Plan: Diabetes is apparently a new diagnosis for this patient. He has high sugars and also a positive beta hydroxybutyrate. sugars are better (5) SBO (small bowel obstruction): Code(s): K56.609 - Unspecified intestinal obstruction, unspecified as to partial versus complete obstruction Status: Acute Assessment and Plan: Surgery has seen the patient. He is getting volume resuscitated to try to make him more stable. Surgery is on the case (6) HTN (hypertension), benign: Code(s): I10 - Essential (primary) hypertension Status: Acute Assessment and Plan: He is not on any antihypertensives. (7) COPD (chronic obstructive pulmonary disease): Code(s): J44.9 - Chronic obstructive pulmonary disease, unspecified Status: Acute Assessment and Plan: Getting supportive care Subjective Date/time seen: 11/21/21 11:53 Interval history: Patient is resting comfortably in bed. Still has NG tube in to suction. Moves his head about and looks around the room and answers questions with 1 random word but no meaningful interaction. Exam Narrative: WDWN in NAD skin no rash or subcu nodules head ncat lungs clear bilaterally cor reg no rub abd Bowel sounds hypoactive and somewhat tender diffusely. ext no edema. Objective Data Vital Signs Vital Signs: Vital Signs - 24 hr 11/20/21 12:00 11/20/21 12:01 11/20/21 12:02 Temperature Pulse Rate 59 L 69 74 Respiratory Rate 16 27 H 23 H Blood Pressure 123/64 Pulse Oximetry 99 100 100 Oxygen Delivery 11/20/21 12:15 11/20/21 12:16 11/20/21 12:00 Temperature Pulse Rate 77 70 Respiratory Rate 20 19 Blood Pressure 122/64 Pulse Oximetry 100 100 Oxygen Delivery Room Air 11/20/21 12:17 11/20/21 12:30 11/20/21 12:31 Temperature Pulse Rate 73 58 L 59 L Respiratory Rate 21 H 21 H 15 Blood Pressure 102/52 L Pulse Oximetry 100 99 99 Oxygen Delivery 11/20/21 12:45 11/20/21 12:46 11/20/21 13:00 Temperature Pulse Rate 74 73 76 Respiratory Rate 22 H 16 15 Blood Pressure 109/60 Pulse Oximetry 100 100 99 Oxygen Delivery 11/20/21 12:00 11/20/21 14:00 11/20/21 13:55 Temperature Pulse Rate 70 75 77 Respiratory Rate 14 Blood Pressure Pulse Oximetry
--- NOTE | 2021-11-21 11:56 | P.PNINT_ITS ---
Progress Note: A&P Assessment and Plan (1) Septic shock: Code(s): A41.9 - Sepsis, unspecified organism; R65.21 - Severe sepsis with septic shock Status: Acute Assessment and Plan: 11/18: Patient presenting with abdominal pain into 3 days, acute kidney injury, hypotension, confusion. Patient was hypotensive was in the ER, IJ central line was inserted and patient was started on Levophed -patient has been adequately fluid resuscitated in the ER at ICU -continue Levophed, maintain MAP > 65 mmHg adequate end organ perfusion -minimal urine output -lactic acid normalized -liver enzymes trending down -Source likely abdomen - Continue Zosyn (11/18) (2) SBO (small bowel obstruction): Code(s): K56.609 - Unspecified intestinal obstruction, unspecified as to partial versus complete obstruction Status: Acute Assessment and Plan: Patient presented with abdominal pain, was found to have small-bowel obstruction with possible perforation -11/18/2021 CT abdomen pelvis: 1. Small bowel obstruction with free intraperitoneal air, suspicious for bowel perforation.2:? Distended gallbladder, nonspecific.3: Ventral abdominal wall hernias containing fat. -surgery following the patient, poor surgical candidate, will manage conservatively with serial exams, fluid resuscitation, NG tube decompression, bowel rest. -Zosyn, renally dosed -11/20: Persistently dilated small bowel, consistent with small bowel obstruction -continue NG tube to suction antibiotics, bowel rest (3) Bowel perforation: Code(s): K63.1 - Perforation of intestine (nontraumatic) Status: Acute Assessment and Plan: As above (4) ORQUIDEA (acute kidney injury): Code(s): N17.9 - Acute kidney failure, unspecified Status: Acute Assessment and Plan: Presented with acute kidney injury with a creatinine of 11.7 and BUN of 126, likely related to shock, infection, hypovolemia, small-bowel obstruction -will aggressively fluid resuscitate the patient -patient on sodium bicarb infusion, CO2 30 this morning, discontinue bicarb infusion and start patient on normal saline -hypokalemia has resolved -patient with rhabdomyolysis CK levels remain elevated, will decrease IV fluids to 75 mL/hour given worsening airspace opacities on chest x-ray -11/18 renal ultrasound with no hydronephrosis, -continue to monitor renal function, electrolytes and urine output -discussed with Nephrology, -discussed with family, they stated that the patient would not want dialysis or connected to machines, family wants to honor the patient's wishes (5) Hyperglycemia: Code(s): R73.9 - Hyperglycemia, unspecified Status: Acute Assessment and Plan: Patient blood sugars have been erratic, they range between 40-600 -hyperglycemia has resolved, -Accu-Cheks and sliding scale insulin q.4 hours -hemoglobin A1c is 5.4 this admission 11/19: Patient currently hypoglycemic, requiring D5 normal saline IV fluids (6) COPD (chronic obstructive pulmonary disease): Code(s): J44.9 - Chronic obstructive pulmonary disease, unspecified Status: Acute Assessment and Plan: History of COPD, continue bronchodilators and supplemental oxygen to maintain O2 sats greater than 92% Plan DVT prophylaxis: Heparin SQ Stress ulcer prophylaxis: Protonix Nutrition: NPO for now, NG tube to suction 11/20/2021: Discussed with Gentry patient's son was also presumably the POA. He stated that Samantha the daughter is coming from [facility], they may proceed with withdrawal of support on 11/21/2021 11/19/2021: I discussed 8 family members in the I
[2021-11-21] MEDS: DEXTROSE 5%/0.9% SOD CHL 1,000 ML 75 ML IV CONT (12:00)
[2021-11-21 12:08] LABS: Glucose Point of Care 126 mg/dl (65-105)
[2021-11-21] MEDS: MORPHINE SULFATE INJ (*CRX) 50 MG in SODIUM CHLORIDE 0.9% IV 95 ML IV CONT (14:47)
--- NOTE | 2021-11-21 18:10 | PC.NURSE ---
This patient, Andrew Wong I, was received from [ icu/4] on 11/21/21 at 1800. Patient/family oriented to unit policies and routines
--- NOTE | 2021-11-23 18:44 | PM.DS ---
DS: Admitting Diagnosis Discharge Date 11/21/21 Admitting Diagnosis Abdominal pain DS: Discharge Diagnosis Discharge Diagnosis (1) Septic shock: Code(s): A41.9 - Sepsis, unspecified organism; R65.21 - Severe sepsis with septic shock Status: Acute (2) Bowel perforation: Code(s): K63.1 - Perforation of intestine (nontraumatic) Status: Acute (3) ORQUIDEA (acute kidney injury): Code(s): N17.9 - Acute kidney failure, unspecified Status: Acute (4) Rhabdomyolysis: Code(s): M62.82 - Rhabdomyolysis Status: Acute (5) SBO (small bowel obstruction): Code(s): K56.609 - Unspecified intestinal obstruction, unspecified as to partial versus complete obstruction Status: Acute (6) Hyperkalemia: Code(s): E87.5 - Hyperkalemia Status: Acute (7) DKA (diabetic ketoacidosis): Code(s): E11.10 - Type 2 diabetes mellitus with ketoacidosis without coma Status: Acute (8) HTN (hypertension), benign: Code(s): I10 - Essential (primary) hypertension Status: Acute (9) COPD (chronic obstructive pulmonary disease): Code(s): J44.9 - Chronic obstructive pulmonary disease, unspecified Status: Acute DS: Summary Hospital Course Reason for hospitalization: 66yo male with COPD, HTN and chronic back pain here for abdominal pain and found to have septic shock.? Please ee H&P for details Hospital Course: Patient brought to the ED for abdominal pain and found to have SBO with possible perforation. Severe metabolic acidosis noted and felt to be multifactorial. HoTN in the ED requiring Levophed. CT scan showing small-bowel obstruction with free intraperitoneal air suspicious for bowel perforation.? Given the blood from the NG tube, consider perforated peptic ulcer.? Started on PPI. Consider also perforation from dilated bowel/stomach.? General surgery was consulted.? It was felt patient was a poor surgical candidate and conservative management was recommended with NG tube decompression and bowel rest.? Patient with oliguric ORQUIDEA with suspected underlying CKD of unknown severity.? The only other lab work available is a BUN 48 and creatinine 4.3 three days [employer] but is unclear if this was abnormal.? No other lab work to compare.? Patient with acute kidney injury with BUN of 126 and creatinine 11.7 on admission.? This is most likely contributing to the metabolic acidosis and hyperkalemia. Labs worsened with BUN 146 and Cr 12. UOP was poor. HD was considered but family not interested. Total creatinine kinase was >16,000 consistent with rhabdomyolysis which could be the etiology of his acute kidney injury as well.? Long discussion with the family at bedside. They were all in agreement about keeping the patient comfortable. Family froom [id number] came in and also agreed for comfort measures. Patient was transferred to hospice care on 11/21/21 Status at Discharge Cognitive/behavioral status at discharge: critical Time Spent with Patient Time attestation: Total time spent providing and/or coordinating discharge services: 35 minutes Time spent: Greater than 30 minutes Exam Narrative: AF 97.2 119/68 67 18 95% ra Gen - Thin male in no acute respiratory distress lying semi recumbent in bed in restraints HEENT - NG secured with brown fluid in tubing Chest - lungs are mildly coarse CV - RRR S1/S2. No rub. Tele showing one episode of 4beat run of NSVT Abd - soft, diffuse pain, +BS. - Michael secured with scant urine in the bag Ext - no pedal edema Neuro - patient arouses. Eyes open. Calls out but is confused. Eyes deviated downward. Psych - unable to assess Skin - cool and dry. No rashes noted. DS: Data Data Completed and Pending Labs on day of discharge: Preliminary micro results at discharge 11/18/21 16:23 Blood Culture - Preliminary Blood 11/18/21 16:23 Blood Culture - Preliminary Blood Discharge Plan Discharge Attending physicia
[2021-11-24 03:21] LABS: Hepatitis B Core Ab Total Nonreactive (Nonreactive)
== END 2021-11-21 19:10 | disposition hospice, inpatient (51) | DRG 720 ==
LOC: ANHED 09:29 → ANHICU 12:23 → ANH3MEDSUR 11-21 18:01
PROVIDERS: Internal Medicine; Internal Medicine Nephrology; Admitting Provider Internal Medicine; Emergency Provider Emergency Medicine; PCP Pediatrics Neonatal-Perinatal Medicine; Visit Provider Internal Medicine
DX: A41.9 Sepsis, unspecified organism (principal); R65.21 Severe sepsis with septic shock; K63.1 Perforation of intestine (nontraumatic); K56.609 Unspecified intestinal obstruction, unspecified as to partial versus complete obstruction; N17.9 Acute kidney failure, unspecified; E87.5 Hyperkalemia; M62.82 Rhabdomyolysis; E11.10 Type 2 diabetes mellitus with ketoacidosis without coma; J44.9 Chronic obstructive pulmonary disease, unspecified; I10 Essential (primary) hypertension; M19.90 Unspecified osteoarthritis, unspecified site; F03.90 Unspecified dementia, unspecified severity, without behavioral disturbance, psychotic disturbance, mood disturbance, and anxiety; E11.65 Type 2 diabetes mellitus with hyperglycemia; E55.9 Vitamin D deficiency, unspecified; E87.2 Acidosis; E86.0 Dehydration; Z66 Do not resuscitate
CPT/HCPCS: 36415; 36600; 51702; 71045; 74019; 74176; 76775; 80053; 81001; 82010; 82550; 82570; 82805; 82947; 82948; 83036; 83605; 83690; 83735; 84100; 84133; 84300; 85025; 85610; 85730; 85999; 86704; 86706; 86803; 87040; 87086; 87340; 93306; 94640; 96361; 96374; 96375; 96376; 99285; A9270; C1751; C9113; J0610; J1170; J1644; J2270; J2543; J7030; J7040; J7042; J7050

== ENCOUNTER 2021-11-21 19:24 | HOS | payer OTHER, SELFPAY ==
[2021-11-21 19:40] VITALS: BMI 20.2
[2021-11-21 20:00] VITALS: BP 111/86; PULSE 64; RESP 22; TEMP 36.4; O2SAT 92
[2021-11-21 20:29] VITALS: PULSE 80; RESP 19
[2021-11-21] MEDS: HYDROmorphone HCL/PF (*CRX) 50 MG in SODIUM CHLORIDE 0.9% IV 95 ML IV CONT (20:29)
[2021-11-22] MEDS: HYDROmorphone HCL INJ (*CRX) 1 MG/ML SYR IV PUSH ×2 (01:46→09:27)
[2021-11-22 08:00] VITALS: BP 128/43; PULSE 76; PULSE 80; RESP 12; RESP 19; TEMP 36.4; O2SAT 90; O2SAT 92
[2021-11-22] MEDS: ARTIFICIAL TEARS OPHTH SOLN 15 ML BOTTLE 1 DROP EACH EYE ×2 (08:35→19:55)
--- NOTE | 2021-11-22 08:52 | PM.IMHP ---
H&P: HPI History of Present Illness Date/Time: 11/22/21 08:52 Chief Complaint: Uncontrolled pain agitation Narrative: this unfortunate 66-year-old gentleman with a history of alcohol abuse and multiple other comorbidities was admitted to acute care with increasing abdominal pain on November 18. He resides in a group home. He was found in the emergency department to have CT evidence for small bowel obstruction and free intraperitoneal air suggesting perforation. He also experienced acute on chronic kidney injury with last creatinine of 12.0. Because of his multiple comorbidities a poor baseline functional status and poor nutritional status he was deemed a poor candidate for surgery. His family opted for DNR status and comfort care only. Review of Systems Review of Systems: ROS unobtainable: Yes unobtainable due to medical condition PMFSH Past Medical History Medical History Chronic back pain COPD (chronic obstructive pulmonary disease) DJD (degenerative joint disease) HTN (hypertension), benign Low vision Vitamin D deficiency Family History Family History Other Family history unknown Social History Social History Social History: Anat is from [facility]. Smoking status: Unknown if ever smoked Substance use: unknown Spiritual care concerns: No Comments Unable to obtain fam hx due to ox1 status Meds Home Medications and Allergies Home Medications Medication Instructions Recorded Confirmed Type acetaminophen 500 mg capsule 1,000 mg PO BID 11/18/21 11/18/21 History baclofen 10 mg tablet 10 mg PO TID 11/18/21 11/18/21 History docusate sodium 100 mg capsule 100 mg PO BID PRN Constipation 11/18/21 11/18/21 History dorzolamide 22.3 mg-timolol 6.8 1 drp LEFT EYE BID 11/18/21 11/18/21 History mg/mL eye drops ergocalciferol (vitamin D2) 1,250 1,250 mcg PO WEEKLY 11/18/21 11/18/21 History mcg (50,000 unit) capsule ibuprofen 400 mg tablet 400 mg PO BID 11/18/21 11/18/21 History losartan 25 mg tablet 25 mg PO DAILY 11/18/21 11/18/21 History prednisolone acetate 1 % eye 1 drp LEFT EYE BID 11/18/21 11/18/21 History drops,suspension psyllium 1 tsp PO BID PRN Constipation 11/18/21 11/18/21 History vitamin B complex (B See Rx Instructions .Route .COMPLEX 11/18/21 11/18/21 History Complex-Vitamin B12 tablet) Allergies Allergy/AdvReac Type Severity Reaction Status Date / Time No Known Allergies Allergy Verified 11/18/21 14:27 Vital Signs Vital Signs - 24 hr 11/21/21 20:29 11/21/21 20:00 11/21/21 20:00 Temperature 97.6 F Pulse Rate 80 64 Respiratory Rate 19 22 H Blood Pressure 111/86 Pulse Oximetry 92 Oxygen Delivery Room Air Exam Narrative: Frail cachectic elderly gentleman was in no acute distress lying comfortably in hospital bed while receiving continuous IV hydromorphone. skin with poor turgor sclerae nonicteric pharyngeal mucosa dry neck without JVD chest clear to auscultation heart regular rate abdomen protuberant no audible bowel sounds relatively firm with grimacing on palpation extremities without edema cyanosis or clubbing musculoskeletal without gross deformity to visual inspection cranial nerves relatively symmetric to visual inspection Assessment and Plan Assessment and plan (1) Palliative care by specialist: Code(s): Z51.5 - Encounter for palliative care Status: Acute Assessment and Plan: meet inpatient hospice criteria due to requiring continues IV hydromorphone for control of pain remainder palliative regimen as ordered (2) Septic shock: Code(s): A41.9 - Sepsis, unspecified organism; R65.21 - Severe sepsis with septic shock Status: Acute (3) SBO (small bowel obstruction): Code(s): K56.609 - Unspeci
[2021-11-22] MEDS: diazePAM INJ (*CRX) 10 MG/2 ML SYRINGE 5 MG IV PUSH ×3 (09:27→19:54)
[2021-11-22 19:57] VITALS: PULSE 75; RESP 12
[2021-11-22] MEDS: HYDROmorphone HCL/PF (*CRX) 50 MG in SODIUM CHLORIDE 0.9% IV 95 ML IV CONT (19:57)
[2021-11-22 20:00] VITALS: BP 117/56; PULSE 94; RESP 16; TEMP 36.7; O2SAT 77
[2021-11-23] MEDS: diazePAM INJ (*CRX) 10 MG/2 ML SYRINGE 5 MG IV PUSH ×2 (02:52→08:30)
[2021-11-23] MEDS: GLYCOPYRROLATE INJ (*SP) 0.2 MG/ML VIAL 0.1 MG IV PUSH (06:39)
[2021-11-23 08:00] VITALS: BP 121/56; PULSE 105; RESP 12; TEMP 37.8; O2SAT 80
[2021-11-23] MEDS: ARTIFICIAL TEARS OPHTH SOLN 15 ML BOTTLE 1 DROP EACH EYE (08:30)
--- NOTE | 2021-11-25 16:48 | P.DN_ITS ---
Discharge Summary Date and Time Date of : 11/23/21 Time of : 10:45 Provider Pronounced By: Denise Freeman RN Probable Cause of Probable Cause of : Sepsis due to bowel obstruction with perforation Summary Hospital Course: admitted to inpatient hospice service due to uncontrolled pain medications titrated to comfort Mr. Wong peacefully Additional Data Confirmation of as documented by pronouncing clinician: Pupillary Reflex, Palpable Pulses, Response to Stimuli, Heart Tones and Breath Sounds Name of Provider Notified: Dr. Garrett Time Provider Notified: 11:22 Provider Requests Autopsy: No Family Requests Autopsy: No Medical Doctor Nuclear Medicine Notified: Yes Date [facility] Notified of : 11/23/21 Time [facility] Notified of : 12:30
== END 2021-11-23 14:10 | disposition expired | DRG 951 ==
PROVIDERS: Admitting Provider Internal Medicine; Visit Provider Internal Medicine
DX: Z51.5 Encounter for palliative care (principal); A41.9 Sepsis, unspecified organism; R65.21 Severe sepsis with septic shock; K63.1 Perforation of intestine (nontraumatic); K56.609 Unspecified intestinal obstruction, unspecified as to partial versus complete obstruction; N17.9 Acute kidney failure, unspecified; Z66 Do not resuscitate; J44.9 Chronic obstructive pulmonary disease, unspecified; M19.90 Unspecified osteoarthritis, unspecified site; E55.9 Vitamin D deficiency, unspecified
CPT/HCPCS: A9270; J1170; J3360